=== PATIENT | female | born 1940 | race Caucasian/White ===

== ENCOUNTER → 2016-11-15 | Outpatient (CLI) | payer MEDICARE ==
--- NOTE | 2016-11-15 23:46 | MR ---
MRI of the brain with and without contrast HISTORY: Headaches. Technique: T1-weighted sagittal, T2, FLAIR, and diffusion axial, postcontrast T1 axial and coronal vi ews of the brain are submitted. CONTRAST: 15 mL of MultiHance COMPARISON: 04/10/2016 CT brain FINDINGS: There is no evidence of acute ischemia. The ventricles, basal cisterns, and sulci overlying the co nvexities are consistent with the patient's age. There is no mass effect or enhancing mass. Craniocervical junction maintained. Sella turcica has a normal appearance. No evidence of cerebellopo ntine angle mass. Mild changes of chronic sinusitis noted. Following contrast administration no enhancing mass. There is a 2 mm nodular prominence of the anteri or communicating artery. White matter: There is extensive focal and confluent areas of periventricular and deep white matter a bnormal signal the largest within the left parietal lobe measuring 8 mm. No enhancing lesions. No les ions perpendicular to the ventricular system. No callosal lesions. IMPRESSION: 1. No acute intracranial process. 2. Extensive white matter changes which are nonspecific but most typical remote microvascular ischemi a. 3. 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 Findings: The cranial cervical junction is preserved. There is no abnormal signal seen within the sp inal cord or paraspinal soft tissues. 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 Stable from previous CT scan. There is loss of disc signal at all levels with moderate degenerative disc disease C4-C5 and C5-C6 with anterior hypertrophic spur formation. Mild degenerative disc disea se C6-C7. At C2-3 there is mild facet arthropathy. No canal stenosis or foraminal encroachment. No disc herniat ion. At C3-4 there is mild degenerative disc disease with very mild bilateral uncovertebral joint hypertro phy. No canal stenosis or focal herniation. Neural foramina patent. At C4-5 there is facet arthropathy with bilateral uncovertebral joint hypertrophy with mild to modera te right-sided foraminal encroachment. There is posterior central disc bulging capped by spur with ce rvical spondylosis but no canal stenosis. At C5-6 there is moderate degenerative disc disease. There is facet arthropathy and uncovertebral cheryl nt hypertrophy with moderate bilateral foraminal encroachment. Posterior cervical spondylosis results in mild effacement of the thecal sac and borderline canal stenosis. At C6-7 there is mild facet arthropathy but no foraminal encroachment or canal stenosis. No neural fo raminal encroachment. Mild facet arthropathy. At C7-T1 there is no disc herniation or canal stenosis. No neural foraminal encroachment. Mild facet arthropathy. IMPRESSION: 1. Multilevel degenerative disc disease with the most marked changes at C4-C5 and C5-C6 with posteri or spondylosis, uncovertebral joint hypertrophy, facet arthropathy and disc bulging capped by spur. B orderline canal stenosis C5-C6 with moderate bilateral foraminal encroachment slightly greater on the right. 2. Stable ectasia of the brachiocephalic artery.
== END | disposition home or self-care (01) ==
LOC: RADMRIMAIN 19:19
PROVIDERS: ATTEND Psychiatry & Neurology Neurology
DX: R90.82 White matter disease, unspecified (principal); M48.02 Spinal stenosis, cervical region; M50.121 Cervical disc disorder at C4-C5 level with radiculopathy; M47.22 Other spondylosis with radiculopathy, cervical region; M46.82 Other specified inflammatory spondylopathies, cervical region
CPT/HCPCS: 70553; 72156; A9577

== ENCOUNTER → 2017-07-13 | Outpatient (CLI) | payer MEDICARE ==
--- NOTE | 2017-07-14 08:33 | MM ---
Reason for exam: screening (asymptomatic). Last mammogram was performed 1 year ago. History: Patient is postmenopausal. Physical Findings: A clinical breast exam by your physician is recommended on an annual basis and results should be correlated with mammographic findings. MG 3D Screening Mammo W/Cad Bilateral CC and MLO view(s) were taken. Prior study comparison: July 01, 2016, bilateral MG 3d screening mammo w/cad. June 19, 2015, bilateral MG screening mammo w CAD. There are scattered fibroglandular densities. There is no discrete abnormality. No significant changes when compared with prior studies. ASSESSMENT: Negative, BI-RAD 1 RECOMMENDATION: Routine screening mammogram of both breasts in 1 year.
== END | disposition home or self-care (01) ==
LOC: RADMAMWWP 09:46
PROVIDERS: ATTEND Internal Medicine
DX: Z12.31 Encounter for screening mammogram for malignant neoplasm of breast (principal)
CPT/HCPCS: 77063; G0202

== ENCOUNTER → 2017-12-16 | Outpatient (CLI) | payer MEDICARE ==
[2017-12-16 11:17] LABS: Basophils % (A) 1 %; Eosinophils # (A) 0.2 k/uL (0-0.7); Eosinophils % (A) 3 %; HCT 47.9 % (34.0-46.0); HGB 15.9 gm/dL (11.4-16.0); Lymphocytes # (A) 1.6 k/uL (1.0-4.8); Lymphocytes % (A) 25 %; MCH 30.1 pg (25.0-35.0); MCHC 33.2 g/dL (31.0-37.0); MCV 90.7 fL (80.0-100.0); Mean Platelet Volume 7.5; Monocytes # (A) 0.3 k/uL (0-1.0); Monocytes % (A) 5 %; Neutrophils % (A) 65 %; Platelet Count 198 k/uL (150-450); RBC 5.28 m/uL (3.80-5.40); RDW 12.6 % (11.5-15.5); WBC 6.2 k/uL (3.8-10.6)
[2017-12-16 11:36] LABS: ALT 39 U/L (9-52); AST 34 U/L (14-36); Albumin 4.3 g/dL (3.5-5.0); Alkaline Phosphatase 67 U/L (38-126); Anion Gap 12 mmol/L; Blood Urea Nitrogen 14 mg/dL (7-17); Calcium 9.9 mg/dL (8.4-10.2); Carbon Dioxide 29 mmol/L (22-30); Chloride 105 mmol/L (98-107); Cholesterol 151 mg/dL (<200); Glucose 94 mg/dL (74-99); HDL Cholesterol 47 mg/dL (40-60); LDL Cholesterol,Calculated 55 mg/dL (0-99); Potassium 4.6 mmol/L (3.5-5.1); Sodium 146 mmol/L (137-145); Total Bilirubin 0.5 mg/dL (0.2-1.3); Total Protein 7.2 g/dL (6.3-8.2); Triglycerides 244 mg/dL (<150)
== END | disposition home or self-care (01) ==
LOC: LABWHC1 10:27
PROVIDERS: ATTEND Internal Medicine
DX: I10 Essential (primary) hypertension (principal); E55.9 Vitamin D deficiency, unspecified
CPT/HCPCS: 36415; 80053; 80061; 82306; 85025

== ENCOUNTER → 2018-01-30 | Outpatient (CLI) | payer MEDICARE ==
--- NOTE | 2018-01-30 22:24 | MR ---
EXAMINATION TYPE: MR cervical spine wo con DATE OF EXAM: 01/30/2018 COMPARISON: NONE HISTORY: Cervicalgia TECHNIQUE: Multiplanar, multisequence images of the cervical spine were acquired. C2-C3: No evidence for degenerative disc disease. No disc bulge/herniation or protrusion. No Canal stenosis. Foramina are patent bilaterally. C3-C4: Mild disc bulge is present. No cord contact is evident. No spinal canal stenosis or neural for aminal stenosis is present. C4-C5: Broad-based disc bulge has mild to moderate anterior thecal sac compression. No cord contact i s evident. No AP spinal canal stenosis present. Moderate right foraminal narrowing is present. Left f oramen appears patent. C5-C6: No evidence for degenerative disc disease. No disc bulge/herniation or protrusion. No Canal stenosis. Neural foramen appear moderately narrowed bilaterally. C6-C7: No evidence for degenerative disc disease. No disc bulge/herniation or protrusion. No Canal stenosis. Foramina are patent bilaterally. C7-T1: No evidence for degenerative disc disease. No disc bulge/herniation or protrusion. No Canal stenosis. Foramina are patent bilaterally. Cervical segments are intact. There is exaggeration of cervical lordosis within the lower cervical s pine. Cervical spinal cord is of normal signal. Craniovertebral junction relationships are within no rmal limits. IMPRESSION: 1. Disc bulging C3-4 C4-5 with mild to moderate anterior thecal sac compression. No stenosis is prese nt. 2. Foraminal narrowing present C5-6 due to uncovertebral joint hypertrophy and on the right at C4-5 d ue to uncovertebral joint hypertrophy.
== END | disposition home or self-care (01) ==
LOC: RADMRIMAIN 08:21
PROVIDERS: ATTEND Internal Medicine
DX: M99.71 Connective tissue and disc stenosis of intervertebral foramina of cervical region (principal); M50.11 Cervical disc disorder with radiculopathy, high cervical region; G95.29 Other cord compression
CPT/HCPCS: 72141

== ENCOUNTER 2018-03-31 12:05 | Emergency (ER) | payer MEDICARE ==
[2018-03-31 12:16] VITALS: BP 140/79; PULSE 88; RESP 16; TEMP 967.8
--- NOTE | 2018-03-31 12:42 | ED ---
General Adult HPI - General Chief complaint: Fall Stated complaint: Fall/pain behind ear Time Seen by Provider: 03/31/18 12:18 Source: family, RN notes reviewed Mode of arrival: ambulatory Limitations: physical limitation - History of Present Illness Initial comments: 78-year-old female presenting for evaluation of head trauma which occurred yesterday evening. Patient was getting out of the bathtub, slipped and fell striking the right mastoid process. There was no loss of consciousness. Patient is currently unsure if she takes blood thinners but believes she does not. She denies any neck pain. She has pain only at the site of injury. No complaints of numbness or extremity weakness. No chest pain or abdominal pain. No other injuries noted. - Related Data Home Medications Medication Instructions Recorded Confirmed Albuterol Sulfate [Proair Hfa] 1 - 2 puff INHALATION RT-Q6H PRN 03/31/18 Atenolol [Tenormin] 25 mg PO DAILY 03/31/18 03/31/18 Atorvastatin [Lipitor] 20 mg PO HS 03/31/18 03/31/18 Gabapentin [Neurontin] 300 mg PO TID 03/31/18 03/31/18 Multivitamins, Thera [Multivitamin 1 tab PO DAILY 03/31/18 03/31/18 (formulary)] Allergies Allergy/AdvReac Type Severity Reaction Status Date / Time codeine Allergy Confusion Verified 03/31/18 12:16 Review of Systems ROS Statement: Those systems with pertinent positive or pertinent negative responses have been documented in the HPI. ROS Other: All systems not noted in ROS Statement are negative. Past Medical History Past Medical History: Chest Pain / Angina, Hyperlipidemia History of Any Multi-Drug Resistant Organisms: None Reported Past Surgical History: Hysterectomy, Orthopedic Surgery, Tubal Ligation Additional Past Surgical History / Comment(s): right hand Past Psychological History: No Psychological Hx Reported Smoking Status: Never smoker Past Alcohol Use History: None Reported Past Drug Use History: None Reported General Exam Limitations: physical limitation General appearance: alert, in no apparent distress Head exam: Present: normocephalic. Absent: atraumatic (Patient has ecchymosis over the right mastoid with some point tenderness. No appreciable bony deformity. No hemotympanum) Eye exam: Present: normal appearance, PERRL, EOMI ENT exam: Present: normal exam Neck exam: Present: normal inspection, tenderness. Absent: meningismus Respiratory exam: Present: normal lung sounds bilaterally. Absent: respiratory distress, wheezes Cardiovascular Exam: Present: regular rate, normal rhythm GI/Abdominal exam: Present: soft. Absent: distended, tenderness Extremities exam: Present: normal inspection, normal capillary refill. Absent: pedal edema Back exam: Present: normal inspection, full ROM. Absent: tenderness Neurological exam: Present: alert, oriented X3, CN II-XII intact. Absent: motor sensory deficit Psychiatric exam: Present: normal affect, normal mood Skin exam: Present: warm, dry, intact Course Vital Signs 03/31/18 12:11 Temperature 967.8 F H Pulse Rate 88 Respiratory 16 Rate Blood Pressure 140/79 O2 Sat by Pulse 97 Oximetry Medical Decision Making - Medical Decision Making 78-year-old female presents status post fall with pain over her right mastoid and some ecchymosis. Patient was sent from primary care physician for evaluation. Head CT is obtained is negative for intracranial hemorrhage or mass effect. There is no bony abnormality at the right mastoid. CT cervical spine shows an old C1 fracture which is healed and unchanged from 2016. Patient has no neck pain. Patient will be discharged with outpatient follow-up. She can use Tylenol for pain. Disposition Clinical Impression: Fall, Contusion Disposition: HOME SELF-CARE Condition: Good Instructions: Fall Prevention for Older Adults (ED), Contusion in Adults (ED) Is patient prescribed a controlled substance at d/c from ED?: No Referrals: Salvador Amador MD [Primary Care Provider] - 1-2 days Time of Disposition: 14:15
--- NOTE | 2018-03-31 14:06 | CT ---
EXAMINATION TYPE: CT brain cspine wo con DATE OF EXAM: 03/31/2018 COMPARISON: 04/10/2016 HISTORY: Fell and hit Rt mastoid region in bathtub. Head and neck pain. CT DLP: 1499.6 mGycm. Automated Exposure Control for Dose Reduction was Utilized. TECHNIQUE: CT scan of the head and cervical spine are performed without contrast. FINDINGS: There is no acute intracranial hemorrhage, mass effect, or midline shift identified. The ventricles and sulci are mildly but symmetrically prominent compatible with age-related volume loss. There are scattered foci of hypoattenuation within the subcortical and periventricular white matter including the external capsules bilaterally. This most commonly relates to sequela microangiopathy. No suspicious extra axial fluid collection is seen. The globes are intact and the visualized sinuses are clear. Cerumen is noted within the external auditory canals. No middle ear cavity fluid. Cervical spine is visualized in its entirety from C1 through upper thoracic levels and demonstrates s atisfactory alignment without evidence of acute fracture or dislocation. Cortical step-off and prior fracture of the right lateral mass of C1 without extent into the transverse foramen as unchanged fro m the prior 04/10/2016 and chronic, incompletely united. Prevertebral soft tissue appears within johanna l limits. The C1-C2 articulation is unremarkable. Mild multilevel degenerative changes of the cervic al spine are seen without evidence spinal canal stenosis on CT. On MR there is note of mild narrowing of the ventral subarachnoid space at C3-C4 and C4-C5 (MRI dated 01/30/2018). IMPRESSION: 1. No acute intracranial process. No acute intracranial hemorrhage, mass effect, or midline shift is seen. 2. No acute cervical spine fracture. Subtle incompletely united old fracture of the lateral mass of C 1, unchanged from 2016. No new malalignment. 3. Mild multilevel degenerative changes of the cervical spine.
== END 2018-03-31 14:00 | disposition home or self-care (01) ==
LOC: EC 12:05
DX: S00.83XA Contusion of other part of head, initial encounter (principal); E78.5 Hyperlipidemia, unspecified; Z79.899 Other long term (current) drug therapy; Z88.5 Allergy status to narcotic agent; Z86.79 Personal history of other diseases of the circulatory system; W18.2XXA Fall in (into) shower or empty bathtub, initial encounter; Y93.89 Activity, other specified; Y92.009 Unspecified place in unspecified non-institutional (private) residence as the place of occurrence of the external cause
CPT/HCPCS: 70450; 72125; 99283

== ENCOUNTER → 2018-04-05 | Outpatient (CLI) | payer MEDICARE ==
[2018-04-05 19:52] LABS: Blood Urea Nitrogen 13 mg/dL (7-17)
--- NOTE | 2018-04-06 01:25 | MR ---
EXAMINATION TYPE: MR brachial plexus RT wo/w con DATE OF EXAM: 04/05/2018 COMPARISON: NONE HISTORY: Rt brachial plexus disorder CONTRAST: Standard multiplanar, multisequence MRI departmental protocol utilizing 7.5 mL intravenous Gadavist g adolinium contrast. FINDINGS: The cervical vertebra appear to have fairly normal alignment. There is narrowing of disc sp aces. Right side cervical nerve roots have normal size and contour. There is no evidence of brachial plexus mass. Cervical spinal cord has normal signal pattern. There is no evidence of edema. There are few small axillary lymph nodes that measure up to 8 mm. There is moderately severe osteoarthritis in the right shoulder joint. There is subacromial impingement and probably rotator cuff tear. There is moderate hypertrophic osteoarthritis at the AC joint. I see no pathologic enhancement. IMPRESSION: Multilevel cervical mild spondylotic changes. No evidence of brachial plexus mass. Nonspecific small axillary lymph nodes. 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
== END | disposition home or self-care (01) ==
LOC: RADMRIMAIN 19:21
PROVIDERS: ATTEND Neurological Surgery
DX: M47.812 Spondylosis without myelopathy or radiculopathy, cervical region (principal); G54.0 Brachial plexus disorders
CPT/HCPCS: 82565; 84520; 71552; A9581

== ENCOUNTER 2018-05-09 12:32 | Emergency (ER) | payer MEDICARE ==
[2018-05-09] MEDS ORDERED: SODIUM CHLORIDE 0.9% 1,000 ML IV STA (13:11)
[2018-05-09] MEDS ORDERED: ALBUTEROL NEBULIZED 2.5 MG/3 ML INHALATION STA (13:11)
[2018-05-09] MEDS ORDERED: RX INFO: IV CONTRAST WAS GIVEN 1 EACH MISC MISCELLANE PRN (13:13)
--- NOTE | 2018-05-09 13:14 | ED ---
SOB HPI - General Chief Complaint: Shortness of Breath Stated Complaint: SOB Time Seen by Provider: 05/09/18 12:48 Source: patient Mode of arrival: wheelchair Limitations: no limitations - History of Present Illness Initial Comments: 78 years old female sent in by Dr. Odell's office she has shortness of breath she thinks that she she choked on a CVL about a week ago she denies any chest pain she said she does get a twinge of chest pain off-and-on no chest pain right now, she does feel a bit of a discomfort in the chest off-and-on. No abdominal pain no frequency urgency dysuria no symptoms of TIA or CVA - Related Data Home Medications Medication Instructions Recorded Confirmed Atenolol [Tenormin] 25 mg PO DIRECTED 03/31/18 05/09/18 Atorvastatin [Lipitor] 20 mg PO DIRECTED 03/31/18 05/09/18 Cholecalciferol [Vitamin D3] 1,000 unit PO DAILY 05/09/18 05/09/18 Glucosam/Chond/Hyalu/Cf Borate 1 tab PO DAILY 05/09/18 05/09/18 [Move Free Joint Health Tablet] Allergies Allergy/AdvReac Type Severity Reaction Status Date / Time codeine AdvReac MIGRAINE Verified 05/09/18 13:19 Review of Systems ROS Statement: Those systems with pertinent positive or pertinent negative responses have been documented in the HPI. ROS Other: All systems not noted in ROS Statement are negative. Past Medical History Past Medical History: Chest Pain / Angina, Hyperlipidemia History of Any Multi-Drug Resistant Organisms: None Reported Past Surgical History: Hysterectomy, Orthopedic Surgery, Tubal Ligation Additional Past Surgical History / Comment(s): right hand Past Psychological History: No Psychological Hx Reported Smoking Status: Never smoker Past Alcohol Use History: None Reported Past Drug Use History: None Reported General Exam - General Exam Comments Initial Comments: General: The patient is awake and alert, in no distress, and does not appear acutely ill. Skin: Skin is warm and dry and no rashes or lesions are noted. Eye: Pupils are equal, round and reactive to light, extra-ocular movements are intact; there is normal conjunctiva bilaterally. Ears, nose, mouth and throat: There are moist mucous membranes and no oral lesions. Neck: The neck is supple, there is no tenderness or JVD. Cardiovascular: There is a regular rate and rhythm. No murmur, rub or gallop is appreciated. Respiratory: To auscultation bilateral, it is consistent with a COPD Gastrointestinal: Soft, non-distended, non-tender abdomen without masses or organomegaly noted. There is no rebound or guarding present. Bowel sounds are unremarkable. Back: There is no tenderness to palpation in the midline. There is no obvious deformity. Musculoskeletal: Normal ROM, no tenderness, There is no pedal edema. There is no calf tenderness or swelling. No cords were appreciated. Neurological: CN II-XII intact, Cranial nerves III through XII are intact. There are no obvious motor or sensory deficits. Coordination appears grossly intact. Speech is normal. Psychiatric: Cooperative, appropriate mood & affect, normal judgment. Limitations: no limitations Course Vital Signs 05/09/18 05/09/18 05/09/18 12:43 13:29 13:43 Temperature 98.4 F Pulse Rate 101 H 95 96 Respiratory 20 Rate Blood Pressure 114/79 O2 Sat by Pulse 98 Oximetry 05/09/18 05/09/18 13:57 16:34 Temperature 99.1 F 97.1 F L Pulse Rate 100 90 Respiratory 18 18 Rate Blood Pressure 127/78 133/80 O2 Sat by Pulse 97 98 Oximetry EKG is normal sinus ventricular rate is 98 OH interval is 184 QRS duration is 72 QT/QTc is 342/436 review of this EKG does not reveal any ST elevation or ST depression CBC is unremarkable, EKG, troponin, chest x-ray are fine d-dimer is elevated we did the CAT scan of the chest to rule out PE or foreign body that study was negative as well now plan is to do for her to ENT Dr. Liu for scope as well as to Dr. Solis for scope see if there is any growth or any tumor in the oropharynx or upper airways or esophagitis she agreed with the plan and she be discharged Medical Decision Making - Lab Data Result diagrams: 05/09/18 13:16 05/09/18 13:16 Lab Results 05/09/18 05/09/18 05/09/18 Range/Units 13:16 13:16 13:16 WBC 7.1 (3.8-10.6) k/uL RBC 5.68 H (3.80-5.40) m/uL Hgb 16.8 H (11.4-16.0) gm/dL Hct 50.5 H (34.0-46.0) % MCV 88.9 (80.0-100.0) fL MCH 29.6 (25.0-35.0) pg MCHC 33.3 (31.0-37.0) g/dL RDW 13.0 (11.5-15.5) % Plt Count 221 (150-450) k/uL Neutrophils % 70 % Lymphocytes % 23 % Monocytes % 4 % Eosinophils % 1 % Basophils % 1 % Neutrophils # 5.0 (1.3-7.7) k/uL Lymphocytes # 1.6 (1.0-4.8) k/uL Monocytes # 0.3 (0-1.0) k/uL Eosinophils # 0.1 (0-0.7) k/uL Basophils # 0.0 (0-0.2) k/uL PT (9.0-12.0) sec INR (<1.2) APTT (22.0-30.0) sec D-Dimer (<0.60) mg/L FEU Sodium 141 (137-145) mmol/L Potassium 4.3 (3.5-5.1) mmol/L Chloride 105 (98-107) mmol/L Carbon Dioxide 22 (22-30) mmol/L Anion Gap 14 mmol/L BUN 10 (7-17) mg/dL Creatinine 0.57 (0.52-1.04) mg/dL Est GFR (CKD-EPI)AfAm >90 (>60 ml/min/1.73 sqM) Est GFR (CKD-EPI)NonAf 90 (>60 ml/min/1.73 sqM) Glucose 91 (74-99) mg/dL Calcium 9.8 (8.4-10.2) mg/dL Total Bilirubin 0.5 (0.2-1.3) mg/dL AST 30 (14-36) U/L ALT 27 (9-52) U/L Alkaline Phosphatase 55 (38-126) U/L Total Creatine Kinase 179 H (30-135) U/L CK-MB (CK-2) 3.3 H* (0.0-2.4) ng/mL CK-MB (CK-2) Rel Index 1.8 Troponin I <0.012 (0.000-0.034) ng/mL Total Protein 7.2 (6.3-8.2) g/dL Albumin 4.4 (3.5-5.0) g/dL 05/09/18 Range/Units 13:16 WBC (3.8-10.6) k/uL RBC (3.80-5.40) m/uL Hgb (11.4-16.0) gm/dL Hct (34.0-46.0) % MCV (80.0-100.0) fL MCH (25.0-35.0) pg MCHC (31.0-37.0) g/dL RDW (11.5-15.5) % Plt Count (150-450) k/uL Neutrophils % % Lymphocytes % % Monocytes % % Eosinophils % % Basophils % % Neutrophils # (1.3-7.7) k/uL Lymphocytes # (1.0-4.8) k/uL Monocytes # (0-1.0) k/uL Eosinophils # (0-0.7) k/uL Basophils # (0-0.2) k/uL PT 10.8 (9.0-12.0) sec INR 1.1 (<1.2) APTT 24.0 (22.0-30.0) sec D-Dimer 0.80 H (<0.60) mg/L FEU Sodium (137-145) mmol/L Potassium (3.5-5.1) mmol/L Chloride (98-107) mmol/L Carbon Dioxide (22-30) mmol/L Anion Gap mmol/L BUN (7-17) mg/dL Creatinine (0.52-1.04) mg/dL Est GFR (CKD-EPI)AfAm (>60 ml/min/1.73 sqM) Est GFR (CKD-EPI)NonAf (>60 ml/min/1.73 sqM) Glucose (74-99) mg/dL Calcium (8.4-10.2) mg/dL Total Bilirubin (0.2-1.3) mg/dL AST (14-36) U/L ALT (9-52) U/L Alkaline Phosphatase (38-126) U/L Total Creatine Kinase (30-135) U/L CK-MB (CK-2) (0.0-2.4) ng/mL CK-MB (CK-2) Rel Index Troponin I (0.000-0.034) ng/mL Total Protein (6.3-8.2) g/dL Albumin (3.5-5.0) g/dL Disposition Clinical Impression: Foreign body in airway, Foreign body in esophagus Disposition: HOME SELF-CARE Condition: Good Instructions: Bronchospasm (ED) Is patient prescribed a controlled substance at d/c from ED?: No Referrals: Salvador Amador MD [Primary Care Provider] - 1-2 days Simeon Kumar MD [STAFF PHYSICIAN] - 1-2 days Asher Liu MD [STAFF PHYSICIAN] - 1-2 days
[2018-05-09 13:29] LABS: Basophils % (A) 1 %; Eosinophils # (A) 0.1 k/uL (0-0.7); Eosinophils % (A) 1 %; HCT 50.5 % (34.0-46.0); HGB 16.8 gm/dL (11.4-16.0); Lymphocytes # (A) 1.6 k/uL (1.0-4.8); Lymphocytes % (A) 23 %; MCH 29.6 pg (25.0-35.0); MCHC 33.3 g/dL (31.0-37.0); MCV 88.9 fL (80.0-100.0); Monocytes # (A) 0.3 k/uL (0-1.0); Monocytes % (A) 4 %; Neutrophils % (A) 70 %; Platelet Count 221 k/uL (150-450); RBC 5.68 m/uL (3.80-5.40); WBC 7.1 k/uL (3.8-10.6)
[2018-05-09 13:41] LABS: ALT 27 U/L (9-52); AST 30 U/L (14-36); Albumin 4.4 g/dL (3.5-5.0); Alkaline Phosphatase 55 U/L (38-126); Anion Gap 14 mmol/L; Blood Urea Nitrogen 10 mg/dL (7-17); Calcium 9.8 mg/dL (8.4-10.2); Carbon Dioxide 22 mmol/L (22-30); Chloride 105 mmol/L (98-107); Glucose 91 mg/dL (74-99); Potassium 4.3 mmol/L (3.5-5.1); Sodium 141 mmol/L (137-145); Total Bilirubin 0.5 mg/dL (0.2-1.3); Total Protein 7.2 g/dL (6.3-8.2)
[2018-05-09 13:46] LABS: INR 1.1 (<1.2); Prothrombin Time 10.8 sec (9.0-12.0)
[2018-05-09 13:48] LABS: D-Dimer 0.8 mg/L FEU (<0.60)
--- NOTE | 2018-05-09 13:52 | XR ---
EXAMINATION TYPE: XR chest 2V DATE OF EXAM: 05/09/2018 COMPARISON: Chest x-ray May 27, 2013 HISTORY: Shortness of breath and choking. TECHNIQUE: Frontal and lateral views of the chest are obtained. FINDINGS: There is no focal air space opacity, pleural effusion, or pneumothorax seen. The cardiac silhouette size is within normal limits with slightly ectatic thoracic aorta redemonstrated. Prominen t multilevel spurring in the mid to lower thoracic spine is again seen. IMPRESSION: No acute cardiopulmonary process. No significant change from prior.
[2018-05-09 13:59] VITALS: RESP 18
[2018-05-09 13:59] LABS: Creatine Kinase 179 U/L (30-135)
[2018-05-09 14:12] LABS: Troponin I <0.012 ng/mL (0.000-0.034)
[2018-05-09 14:15] LABS: Creatine Kinase MB 3.3 ng/mL (0.0-2.4)
--- NOTE | 2018-05-09 15:34 | CT ---
EXAMINATION TYPE: CT chest angio for PE DATE OF EXAM: 05/09/2018 COMPARISON: None HISTORY: SOB CT DLP: 243.40 mGycm CONTRAST: CT chest with contrast and 3D reconstruction with MIP imaging is performed with IV Contrast, patient injected with 100 ml mL of Isovue 370. Contrast-enhanced CT of the chest was performed through the course of the pulmonary arteries with piyush g and mediastinal window settings submitted. 3D reconstruction with MIP imaging was also performed. PULMONARY ARTERIES: The pulmonary arteries and their major tributaries are patent. I do not see marisol dence for sizable filling defect to suggest pulmonary embolic process. LUNGS: The lungs are clear and free of infiltrate. No evidence for atelectasis. No pulmonary nodule or mass is detected. No pleural effusion. MEDIASTINUM: No foreign body identified within the visualized tracheobronchial tree. Thoracic aorta is of normal caliber,however, evaluation is limited given timing of the contrast bolus. If there is concern for thoracic aortic pathology consider TONG. Correlate clinically . The heart is not enlarged . No evidence for mediastinal mass. No mediastinal lymph nodes greater than 1cm. HILAR STRUCTURES: No evidence for mass. No hilar lymph nodes greater than 1 cm. UPPER ABDOMEN: No significant abnormality is seen. IMPRESSION: 1. No evidence for Pulmonary embolism at this time.
[2018-05-09 16:36] VITALS: PULSE 90
[2018-05-09 17:57] VITALS: BP 121/72; TEMP 98
== END 2018-05-09 18:09 | disposition home or self-care (01) ==
LOC: EC 12:32
DX: T18.108A Unspecified foreign body in esophagus causing other injury, initial encounter (principal); T17.808A Unspecified foreign body in other parts of respiratory tract causing other injury, initial encounter; R74.0 Nonspecific elevation of levels of transaminase and lactic acid dehydrogenase [LDH]; E78.5 Hyperlipidemia, unspecified; Z79.899 Other long term (current) drug therapy; Z88.5 Allergy status to narcotic agent
CPT/HCPCS: 36415; 94640; 93005; 85379; 80053; 82550; 82553; 84484; 85025; 85610; 85730; 71046; 71275; 99285; 96360; 96361 ×3; Q9967

== ENCOUNTER → 2018-06-29 | Outpatient (CLI) | payer MEDICARE ==
--- NOTE | 2018-06-29 10:00 | FL ---
EXAMINATION TYPE: FL sniff test without CXR DATE OF EXAM: 06/29/2018 COMPARISON: Correlation radiograph and CT 05/09/2018 HISTORY: 78-year-old female intermittent shortness of breath with exertion, right-sided generalized w eakness, assess for diaphragmatic paralysis. TECHNIQUE: Real-time fluoroscopy. Total fluoroscopy time: 59 seconds. Total images: 7. FINDINGS: The left hemidiaphragm is only minimally elevated compared to the right. During normal breathing, we note quick and shallow respirations. During deep inspiration/expiration, there is very minimal diaphragmatic excursion with breathing susp ected to be performed via chest wall expansion. However, with sniffing maneuver, there is appropriate movement and excursion of both hemidiaphragms. IMPRESSION: 1. No evidence for diaphragmatic paralysis. 2. The patient has shallow quick respirations at baseline. 3. In addition, deep inspiration/expiration results in very minimal diaphragmatic excursion with deep breathing suspected to be performed primarily via chest wall expansion.
== END | disposition home or self-care (01) ==
LOC: RADFLMAIN 09:03
PROVIDERS: ATTEND Internal Medicine
DX: J98.9 Respiratory disorder, unspecified (principal); Z88.5 Allergy status to narcotic agent; Z88.6 Allergy status to analgesic agent
CPT/HCPCS: 76000

== ENCOUNTER → 2018-10-26 | Outpatient (CLI) | payer MEDICARE ==
--- NOTE | 2018-10-26 12:01 | FL ---
MODIFIED SWALLOW / DEGLUTITION STUDY DATE OF EXAM: 10/26/2018 CLINICAL HISTORY: 78-year-old female with Dysphagia. Patient reports trouble swallowing and sensation of residuals in the throat. TECHNIQUE: Deglutition study is performed utilizing thin liquid barium, honey and nectar thick liqui d barium, barium thick applesauce, and barium coated cracker. Total fluoroscopy time: 2 minutes 23 seconds. Total images: None. Real-time fluoroscopy support was provided to speech pathology. COMPARISON: None. FINDINGS: The oral and pharyngeal phases show satisfactory initiation and propagation with all modalities teste d. Normal mastication is seen with solid modalities tested. There is superficial penetration with t hin and nectar liquid consistency that resolves with chin tuck maneuver. There is mild to moderate an terior endplate spondylosis in the lower cervical spine impressing on the posterior wall of the hypop harynx without obstruction. No significant pharyngeal residue was appreciated. IMPRESSION: Superficial penetration with thin liquids and nectar thickened liquids. Resolves with chin tuck. Please refer to speech therapist notes for further details if necessary.
== END ==
LOC: RADFLMAIN 11:18
PROVIDERS: ATTEND Otolaryngology
DX: R13.10 Dysphagia, unspecified (principal)
CPT/HCPCS: 74230

== ENCOUNTER 2018-11-11 19:10 | Observation (INO) | payer MEDICARE ==
[2018-11-11 19:44] LABS: Basophils % (A) 0 %; Eosinophils # (A) 0.1 k/uL (0-0.7); Eosinophils % (A) 1 %; HCT 46.8 % (34.0-46.0); HGB 15.4 gm/dL (11.4-16.0); Lymphocytes # (A) 1.5 k/uL (1.0-4.8); Lymphocytes % (A) 19 %; MCH 30.5 pg (25.0-35.0); MCV 92.3 fL (80.0-100.0); Mean Platelet Volume 7.5; Monocytes # (A) 0.4 k/uL (0-1.0); Monocytes % (A) 5 %; Neutrophils % (A) 75 %; Platelet Count 245 k/uL (150-450); RBC 5.07 m/uL (3.80-5.40); RDW 13.5 % (11.5-15.5)
[2018-11-11 19:52] LABS: INR 0.9 (<1.2); Partial Thromboplastin Time 23.2 sec (22.0-30.0)
--- NOTE | 2018-11-11 19:54 | XR ---
EXAMINATION TYPE: XR chest 2V DATE OF EXAM: 11/11/2018 COMPARISON: Prior chest x-ray 05/09/2018 HISTORY: Chest pain TECHNIQUE: Frontal and lateral views of the chest are obtained. FINDINGS: Patient is rotated. There are overlying cardiac leads. There is no focal air space opacity, pleural effusion, or pneumothorax seen. The cardiac silhouette size is stable. The osseous struct ures are intact. IMPRESSION: No acute cardiopulmonary process.
[2018-11-11 19:58] LABS: ALT 26 U/L (9-52); AST 26 U/L (14-36); Albumin 3.7 g/dL (3.5-5.0); Alkaline Phosphatase 41 U/L (38-126); Anion Gap 7 mmol/L; Blood Urea Nitrogen 12 mg/dL (7-17); Calcium 9.4 mg/dL (8.4-10.2); Carbon Dioxide 33 mmol/L (22-30); Chloride 101 mmol/L (98-107); Glucose 128 mg/dL (74-99); Magnesium 2.1 mg/dL (1.6-2.3); Potassium 3.9 mmol/L (3.5-5.1); Sodium 141 mmol/L (137-145); Total Bilirubin 0.4 mg/dL (0.2-1.3); Total Protein 6.3 g/dL (6.3-8.2)
[2018-11-11 20:07] LABS: Creatine Kinase 43 U/L (30-135)
--- NOTE | 2018-11-11 20:19 | ED ---
Chest Pain HPI - General Chief Complaint: Chest Pain Stated Complaint: Chest Pain Time Seen by Provider: 11/11/18 19:10 Source: patient, EMS, RN notes reviewed Mode of arrival: EMS Limitations: no limitations - History of Present Illness Initial Comments: This is a 78-year-old female history of a recent workup which apparently showed some partial obstructions of the coronary arteries also a history of A. fib who presents with complaints of sudden onset of 06/09 midsternal chest pain with dyspnea just prior to arrival. She was brought in by EMS she was given 324 mg aspirin one nitroglycerin did regarding her pain level down from 06/09-11/09. She also did have some decline of her blood pressure. She also has some shortness of breath she does feel much improved at this time. No recent fevers chills cough or phlegm production. MD Complaint: chest pain - Related Data Home Medications Medication Instructions Recorded Confirmed Cholecalciferol [Vitamin D3] 2,000 unit PO DAILY 05/09/18 11/11/18 Atenolol 25 mg PO DAILY 11/11/18 11/11/18 Gabapentin [Neurontin] 300 mg PO TID 11/11/18 11/11/18 Allergies Allergy/AdvReac Type Severity Reaction Status Date / Time codeine AdvReac MIGRAINE Verified 11/11/18 19:33 Review of Systems ROS Statement: Those systems with pertinent positive or pertinent negative responses have been documented in the HPI. ROS Other: All systems not noted in ROS Statement are negative. EKG Findings - EKG Results: EKG: interpreted by ERMD, sinus rhythm (Sinus rhythm rate of 114 SD interval 180 QRS 70 QT since QTC 314/432 low-voltage QRS no acute ST-T wave abnormalities noted.) Past Medical History Past Medical History: Chest Pain / Angina, Hyperlipidemia History of Any Multi-Drug Resistant Organisms: None Reported Past Surgical History: Hysterectomy, Orthopedic Surgery, Tubal Ligation Additional Past Surgical History / Comment(s): right hand Past Psychological History: No Psychological Hx Reported Smoking Status: Never smoker Past Alcohol Use History: None Reported Past Drug Use History: None Reported General Exam - General Exam Comments Initial Comments: This is a well-developed well-nourished awake alert oriented 3 female Limitations: no limitations General appearance: alert, anxious Head exam: Present: atraumatic, normocephalic, normal inspection Eye exam: Present: normal appearance, PERRL, EOMI. Absent: scleral icterus, conjunctival injection, periorbital swelling ENT exam: Present: normal exam, mucous membranes moist Neck exam: Present: normal inspection. Absent: tenderness, meningismus, lymphadenopathy Respiratory exam: Present: normal lung sounds bilaterally. Absent: respiratory distress, wheezes, rales, rhonchi, stridor Cardiovascular Exam: Present: regular rate, normal rhythm, normal heart sounds. Absent: systolic murmur, diastolic murmur, rubs, gallop, clicks GI/Abdominal exam: Present: soft, normal bowel sounds. Absent: distended, tenderness, guarding, rebound, rigid Extremities exam: Present: normal inspection, full ROM, normal capillary refill. Absent: tenderness, pedal edema, joint swelling, calf tenderness Back exam: Present: normal inspection Neurological exam: Present: alert, oriented X3, CN II-XII intact Psychiatric exam: Present: normal affect, normal mood Skin exam: Present: warm, dry, intact, normal color. Absent: rash Course Vital Signs 11/11/18 19:30 Temperature 98.7 F Pulse Rate 111 H Respiratory 20 Rate Blood Pressure 101/73 O2 Sat by Pulse 97 Oximetry - Reevaluation(s) Reevaluation #1: 11/11/18 21:01 Reevaluation patient reveals that she is been having intermittent episodes of chest pain during her stay here. Chest Pain MDM - MDM Did review the imaging and reports no acute findings. I did discuss findings with the patient family members or present. I also discussed case with Dr. Wilson. Patient be admitted to the hospital for inpatient evaluation of suspected unstable angina. Critical Care Time Critical Care Time: Yes Critical Care Time: 31 minutes of critical care time which includes initial presentation with history physical labs x-rays reevaluation patient several occasions discussion with patient family regarding findings discussion with the admitting physician Dr. Wilson admission orders documentation above review of old charting available. Disposition Clinical Impression: Unstable angina, Chest pain Disposition: ADMITTED IP TO THIS [facility] Condition: Serious Referrals: Salvador Amador MD [Primary Care Provider] - 1-2 days
[2018-11-11 20:20] LABS: Creatine Kinase MB 1.1 ng/mL (0.0-2.4); Troponin I <0.012 ng/mL (0.000-0.034)
[2018-11-11] MEDS ORDERED: NITROGLYCERIN SL TABS 0.4 MG TAB SUBLINGUAL PRN (21:05)
[2018-11-11] MEDS ORDERED: HEPARIN SODIUM,PORCINE 5,000 UNIT/ML 1 ML VIAL IV ONE (21:05)
[2018-11-11] MEDS ORDERED: HEPARIN SOD,PORK IN 0.45% NACL 25,000 UNIT in 0.45% NACL 1 250ML.BAG IV SCH (21:15)
[2018-11-11] MEDS ORDERED: SODIUM CHLORIDE 0.9% 1,000 ML IV SCH (21:15)
[2018-11-11 22:14] VITALS: BMI 22.6
[2018-11-11] MEDS: GABAPENTIN 300 MG CAP PO SCH (23:14)
[2018-11-11] MEDS: NITROGLYCERIN OINT 1 INCH/GM PACKET TOPICAL SCH (23:54)
[2018-11-12 01:30] LABS: Creatine Kinase 43 U/L (30-135)
[2018-11-12 01:43] LABS: Creatine Kinase MB 1.3 ng/mL (0.0-2.4); Troponin I <0.012 ng/mL (0.000-0.034)
[2018-11-12] MEDS: NITROGLYCERIN OINT 1 INCH/GM PACKET TOPICAL SCH (05:52)
[2018-11-12 07:04] LABS: Cholesterol 199 mg/dL (<200); HDL Cholesterol 50 mg/dL (40-60); LDL Cholesterol,Calculated 126 mg/dL (0-99); Triglycerides 117 mg/dL (<150)
[2018-11-12 07:14] VITALS: RESP 18
[2018-11-12 07:20] LABS: Creatine Kinase 51 U/L (30-135)
[2018-11-12 08:02] LABS: Creatine Kinase MB 1.8 ng/mL (0.0-2.4); Troponin I <0.012 ng/mL (0.000-0.034)
[2018-11-12] MEDS: GABAPENTIN 300 MG CAP PO SCH ×2 (08:34→15:45)
[2018-11-12] MEDS ORDERED: ASPIRIN 325 MG TAB PO SCH (09:00)
[2018-11-12] MEDS ORDERED: CHOLECALCIFEROL 1,000 UNIT TAB PO SCH (09:00)
[2018-11-12] MEDS ORDERED: ATENOLOL 25 MG TAB PO SCH (09:00)
[2018-11-12] MEDS ORDERED: ATENOLOL 25 MG TAB PO STA (11:48)
--- NOTE | 2018-11-12 11:51 | P.CRDCN ---
History of Present Illness History of present illness: This is a pleasant 78-year-old female past medical history significant for hypertension and dyslipidemia. She follows with Dr. Becerra in the office. We have been assisting her in consultation for symptoms of chest discomfort. Yesterday while sitting in chair watching television she started with a tight squeezing sensation in the left precordial region with shortness of breath, light headed and mildly diaphoretic. No nausea, vomiting or palpitations. No radiation to arms, back, neck or jaw. Ultimately subsided upon arrival to the hospital. No chest pain currently. She has no specific aggravating or alleviating factors. In July of this year she underwent cardiac catheterization [facility] which revealed essentially normal coronary arteries with mild plaque noted in the mid to distal LAD that was nonobstructive. EKG on arrival reveals sinus mechanism no acute ST or T wave abnormalities noted with heart rate of 114. Chest x-ray is negative for acute cardiopulmonary process. Laboratory data reviewed, WBC 8.0, hemoglobin 15.4, platelets 245, sodium 141, potassium 3.9, creatinine 0.43, magnesium 2.1, cardiac enzymes negative 3, LDL 126 and HDL 50. Current cardiac medications include atenolol 25 mg daily. Most recent echocardiogram obtained in the office December 2017 reveals preserved left ventricular systolic function with ejection fraction 55%. At the time of my exam: CONSTITUTIONAL: Denies fever. Denies chills. EYES: Denies blurred vision. Denies vision changes. Denies eye pain. EARS, NOSE, MOUTH & THROAT: Denies headache. Denies sore throat. Denies ear pain. CARDIOVASCULAR: Denies chest pain. Denies shortness of breath. Denies orthopnea. Denies PND. Denies palpitations. RESPIRATORY: Denies cough. GASTROINTESTINAL: Denies abdominal pain. Denies diarrhea. Denies constipation. Denies nausea. Denies vomiting. MUSCULOSKELETAL: Denies myalgias. INTEGUMENTARY: Denies pruitis. Denies rash. NEUROLOGIC: Denies numbness. Denies tingling. Denies weakness. PSYCHIATRIC: Denies anxiety. Denies depression. ENDOCRINE: Denies fatigue. Denies weight change. Denies polydipsia. Denies polyurina. GENITOURINARY: Denies burning, hematuria or urgency with micturation. HEMATOLOGIC: Denies history of anemia. Denies bleeding. Blood pressure 117/68 heart rate 66 afebrile maintaining oxygen saturation on room air GENERAL: This is a 78-year-old female in no apparent distress at the time of my examination. HEENT: Head is atraumatic, normocephalic. Pupils are equal, round. Sclerae anicteric. Conjunctivae are clear. Mucous membranes of the mouth are moist. Neck is supple. There is no jugular venous distention. No carotid bruit is heard. LUNGS: Clear to auscultation no wheezes, rales or rhonchi. No chest wall tenderness is noted on palpation or with deep breathing. HEART: Regular rate and rhythm with systolic ejection murmur at the left sternal border, no rubs or gallops. S1 and S2 heard. ABDOMEN: Soft, nontender. Bowel sounds are heard. No organomegaly noted. EXTREMITIES: No evidence of peripheral edema and no calf tenderness noted. VASCULAR: Radial and dorsalis pedis pulses palpated, no evidence of clubbing. NEUROLOGIC: Patient is awake, alert and oriented x3. ASSESSMENT Chest pain, atypical for angina. An acute coronary event has been ruled out with no EKG evidence of ischemia and negative cardiac enzymes. Recent cardiac catheterization revealed mild nonobstructive CAD Hypertension Dyslipidemia PLAN An coronary event has been ruled out. Increase atenolol 50 mg daily. Stable from a cardiac perspective, follow-up with Dr. Becerra upon discharge. Ongoing medical management and evaluation of noncardiac chest pain. Thank you kindly for this consultation. The above impression and plan of care have been discussed and directed by the signing physician. Elizabeth Barrow, nurse practitioner, acting as scribe for signing physician. Past Medical History Past Medical History: Chest Pain / Angina, Hyperlipidemia, Hypertension Additional Past Medical History / Comment(s): pt. denies any HLD. possible heart cath History of Any Multi-Drug Resistant Organisms: None Reported Past Surgical History: Hysterectomy, Orthopedic Surgery, Tubal Ligation Additional Past Surgical History / Comment(s): right hand Past Anesthesia/Blood Transfusion Reactions: No Reported Reaction Past Psychological History: No Psychological Hx Reported Smoking Status: Never smoker Past Alcohol Use History: None Reported Past Drug Use History: None Reported - Past Family History Father Family Medical History: Myocardial Infarction ([place]) Additional Family Medical History / Comment(s): father passed from [place] Mother Family Medical History: CVA/TIA, Diabetes Mellitus, Hypertension Sister(s) Family Medical History: Diabetes Mellitus Medications and Allergies Home Medications Medication Instructions Recorded Confirmed Type Cholecalciferol [Vitamin D3] 2,000 unit PO DAILY 05/09/18 11/11/18 History Atenolol 25 mg PO DAILY 11/11/18 11/11/18 History Gabapentin [Neurontin] 300 mg PO TID 11/11/18 11/11/18 History Allergies Allergy/AdvReac Type Severity Reaction Status Date / Time codeine AdvReac MIGRAINE Verified 11/11/18 19:33 Physical Exam Vitals: Vital Signs Temp Pulse Pulse Pulse Resp BP BP 11/12/18 07:00 97.8 F 103 H 18 11/12/18 04:03 97.5 F L 98 15 126/77 11/12/18 04:00 98 15 11/12/18 00:00 94 14 11/11/18 23:39 98.3 F 94 14 130/81 11/11/18 22:25 22 11/11/18 22:15 98.5 F 104 H 20 118/77 11/11/18 21:00 114 H 22 128/76 11/11/18 20:00 111 H 15 101/73 11/11/18 19:30 98.7 F 111 H 20 101/73 11/11/18 19:25 111 H 16 111/74 BP Pulse Ox 11/12/18 07:00 132/79 93 L 11/12/18 04:03 96 11/12/18 04:00 11/12/18 00:00 11/11/18 23:39 94 L 11/11/18 22:25 11/11/18 22:15 95 11/11/18 21:00 97 11/11/18 20:00 97 11/11/18 19:30 97 11/11/18 19:25 97 Intake and Output 11/11/18 11/12/18 11/12/18 22:59 06:59 14:59 Other: Voiding Method Toilet Toilet Bedside Commode Bedside Commode # Voids 1 2 Weight 63.503 kg 63.503 kg Results 11/11/18 19:15 11/11/18 19:15 Cardiac Enzymes 11/11/18 11/11/18 11/12/18 Range/Units 19:15 19:15 00:58 AST 26 (14-36) U/L CK-MB (CK-2) 1.1 1.3 (0.0-2.4) ng/mL Troponin I <0.012 <0.012 (0.000-0.034) ng/mL 11/12/18 Range/Units 06:09 AST (14-36) U/L CK-MB (CK-2) 1.8 (0.0-2.4) ng/mL Troponin I <0.012 (0.000-0.034) ng/mL Coagulation 11/11/18 11/12/18 Range/Units 19:15 06:09 PT 10.0 (9.0-12.0) sec APTT 23.2 39.8 H (22.0-30.0) sec Lipids 11/12/18 Range/Units 06:09 Triglycerides 117 (<150) mg/dL Cholesterol 199 (<200) mg/dL HDL Cholesterol 50 (40-60) mg/dL CBC 11/11/18 Range/Units 19:15 WBC 8.0 (3.8-10.6) k/uL RBC 5.07 (3.80-5.40) m/uL Hgb 15.4 (11.4-16.0) gm/dL Hct 46.8 H (34.0-46.0) % Plt Count 245 (150-450) k/uL Comprehensive Metabolic Panel 11/11/18 Range/Units 19:15 Sodium 141 (137-145) mmol/L Potassium 3.9 (3.5-5.1) mmol/L Chloride 101 (98-107) mmol/L Carbon Dioxide 33 H (22-30) mmol/L BUN 12 (7-17) mg/dL Creatinine 0.43 L (0.52-1.04) mg/dL Glucose 128 H (74-99) mg/dL Calcium 9.4 (8.4-10.2) mg/dL AST 26 (14-36) U/L ALT 26 (9-52) U/L Alkaline Phosphatase 41 (38-126) U/L Total Protein 6.3 (6.3-8.2) g/dL Albumin 3.7 (3.5-5.0) g/dL Current Medications Generic Name Dose Route Start Last Admin Trade Name Freq PRN Reason Stop Dose Admin Aspirin 325 mg 11/12/18 09:00 Aspirin PO DAILY [facility] Atenolol 25 mg 11/12/18 09:00 Tenormin PO DAILY [facility] Cholecalciferol 2,000 unit 11/12/18 09:00 Vitamin D3 PO DAILY [facility] Gabapentin 300 mg 11/11/18 22:00 11/11/18 23:14 Neurontin PO 300 mg TID [facility] Administration Heparin Sodium/Sodium Chloride 250 mls @ 7.62 mls/hr 11/11/18 21:15 11/11/18 22:15 25,000 unit/ Sodium Chloride IV 12 units/kg/hr .Q24H PANKAJ 7.62 mls/hr Administration Protocol 12 UNITS/KG/HR Sodium Chloride 1,000 mls @ 20 mls/hr 11/11/18 21:15 11/11/18 23:47 Saline 0.9% IV 20 mls/hr .Q24H PANKAJ Administration Nitroglycerin 1 inch 11/12/18 00:00 11/12/18 05:52 Nitro-Bid Oint TOPICAL Not Given Q6HR [facility] Nitroglycerin 0.4 mg 11/11/18 21:05 Nitrostat SUBLINGUAL Q5M PRN Chest Pain Intake and Output 11/11/18 11/12/18 11/12/18 22:59 06:59 14:59 Other: Voiding Method Toilet Toilet Bedside Commode Bedside Commode # Voids 1 2 Weight 63.503 kg 63.503 kg 11/11/18 19:15 11/11/18 19:15
[2018-11-12 15:51] VITALS: BP 100/61; PULSE 73; TEMP 98
--- NOTE | 2018-11-12 19:31 | DS ---
DISCHARGE SUMMARY HISTORY AND PHYSICAL/DISCHARGE SUMMARY: DATE OF ADMISSION: November 11, 2018. DATE OF DISCHARGE: November 12, 2018. PRESENTING COMPLAINT: Chest pain. HISTORY OF PRESENTING COMPLAINT: A very pleasant, 78-year-old patient who follows with Dr. Amador. Chronic stable medical conditions include hypertension, hyperlipidemia, osteoarthritis with back and knees. At baseline uses a walker. The patient was sitting down yesterday when she developed tightness across the chest, lasted for a good about half an hour. The patient was short of breath. No perspiration. Became dizzy. The pain then subsequently subsided. The patient has noted this pain occasionally when she uses a walker and getting about, not all the time. The patient admitted to rule in assess for cardiac cause. Troponin did come back negative. The patient is suffering from some distal neuropathy in both upper and lower extremities. No prior cardiac history. Cardiology was consulted. REVIEW OF SYSTEMS: CONSTITUTIONAL: Tired. HEENT: None. CARDIOVASCULAR: As above. GASTROINTESTINAL: None. GENITOURINARY: None. MUSCULOSKELETAL: Pain in different joints especially in the lower back and knees. DERMATOLOGICAL, HEMATOLOGIC, LYMPHATICS: none. PSYCHIATRY none. NEUROLOGICAL: Some weakness and wasting of the distal muscles of the hand and feet. PAST MEDICAL HISTORY: Hypertension, hyperlipidemia, osteoarthritis of the back and knees. PAST SURGICAL HISTORY: Hysterectomy, orthopedic surgery, tubal ligation, right hand carpal tunnel surgery. SOCIAL HISTORY: No smoking, no alcohol. . Uses a walker. FAMILY HISTORY: Father had heart attack. HOME MEDICATIONS: 1. Neurontin 300 mg t.i.d. 2. Atenolol 25 mg p.o. daily. 3. Vitamin D3 2000 units p.o. daily. ALLERGIES: CODEINE. PHYSICAL EXAMINATION: VITAL SIGNS: Vital signs on presentation, temperature 98.7, pulse 111, respiration 20, blood pressure 101/73, pulse ox 97% on room air. GENERAL APPEARANCE: Thin built, lying in bed, awake. EYES: Pupils equal. Conjunctivae normal. HEENT: External appearance of nose and ears normal. Oral cavity normal. NECK: JVD not raised. Mass not palpable. RESPIRATORY: Effort normal. LUNGS: Fair entry. CARDIOVASCULAR: 1st and 2nd sounds normal. No edema. ABDOMEN: Soft, nontender. Liver and spleen not palpable. LYMPHATICS: No lymph nodes palpable in the neck and axilla. PSYCHIATRY: Alert and oriented times three. Mood and affect slightly anxious- appearing. NEUROLOGICAL: Pupils equal. Cranial nerves grossly intact grossly intact. MUSCULOSKELETAL: Some weakness in the muscles of the distal hand and the feet. INVESTIGATIONS: White count 8.0, hemoglobin 15.4, potassium 3.9, BUN 12, creatinine 0.43. Troponin x3 negative. LDL 126. EKG tracing personally reviewed by me shows some nonspecific changes. Chest x-ray film personally reviewed by me shows some unfolding of the aorta and no infiltrates. Also chest x-ray report was reviewed. ASSESSMENT: 1. Anterior chest wall pain with some cardiac component, possible angina. 2. Essential hypertension. 3. Hyperlipidemia. 4. 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 5. Peripheral neuropathy, exact type unknown. 6. Chronic gait dysfunction uses a walker. PLAN: Patient is seen by Cardiology who did increase the patient's beta el. Other home medications to continue. We will order aspirin. The patient to follow up with the costumed character in the office. No further symptoms. Care was discussed with the patient. DISCHARGE MEDICATIONS: 1. Aspirin 81 mg a day. 2. Tenormin 50 mg a day. 3. Vitamin D3 2000 units a day. 4. Neurontin 300 mg t.i.d. 5. Nitrostat 0.4 sublingual q.5 p.r.n. FOLLOWUP: Follow up with Dr. Amador in 1 week. Follow up with Dr. Wilkerson in 1 week. This is both a history/physical and discharge summary on this patient. Copy to Dr. Amador. MMODL / IJN: [id number] /
[2018-11-13] MEDS ORDERED: ATENOLOL 50 MG TAB PO SCH (09:00)
== END 2018-11-12 18:23 | disposition home or self-care (01) ==
LOC: EC 19:10 → 1SOBS 21:05
PROVIDERS: ADMIT Hospitalist; ATTEND Hospitalist
DX: R07.89 Other chest pain (principal); R42 Dizziness and giddiness; R06.00 Dyspnea, unspecified; R06.02 Shortness of breath; R61 Generalized hyperhidrosis; I25.10 Atherosclerotic heart disease of native coronary artery without angina pectoris; E78.5 Hyperlipidemia, unspecified; I10 Essential (primary) hypertension; I48.91 Unspecified atrial fibrillation; Z82.3 Family history of stroke; Z82.49 Family history of ischemic heart disease and other diseases of the circulatory system; M17.0 Bilateral primary osteoarthritis of knee; M47.816 Spondylosis without myelopathy or radiculopathy, lumbar region; G62.9 Polyneuropathy, unspecified; R26.9 Unspecified abnormalities of gait and mobility; Z90.710 Acquired absence of both cervix and uterus; Z83.3 Family history of diabetes mellitus; Z79.899 Other long term (current) drug therapy; Z88.5 Allergy status to narcotic agent
CPT/HCPCS: 99291 ×2; 96365; 96366 ×2; 36415; 93005; 97162; 83880; 80061; 80053; 84443; 82550 ×2; 82553 ×2; 83735; 84484 ×2; 85025; 85610; 85730 ×2; 71046; G0378 ×2; J1644

== ENCOUNTER 2018-11-29 07:41 | Day surgery (SDC) | payer MEDICARE ==
[2018-11-29] MEDS ORDERED: SODIUM CHLORIDE 0.9% 500 ML 500 ML IV SCH (08:14)
[2018-11-29 08:15] VITALS: TEMP 97.1
[2018-11-29] MEDS ORDERED: LACTATED RINGERS 1,000 ML IV ONE (08:16)
[2018-11-29 08:29] LABS: Glucose,Whole Blood 89 mg/dL (75-99)
--- NOTE | 2018-11-29 09:28 | P.PCN ---
Date of Procedure: 11/29/18 Procedure(s) Performed: Procedure=1- Diagnostic lumbar puncture . 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 Condition= stable. Complications=none. Indication for the procedure= patient with a history of symptoms suggestive of motor neuron disease and she was referred to have a lumbar puncture for diagnostic study procedure risk and benefits and alternatives discussed with the patient and she agreed with the preceding, Description of the procedure= patient in the procedure room sitting position and monitors applied, the back prepped with chlorhexidine X 3, sterile technique , local infiltration of the skin and subcu interstitial with lidocaine 1% 2 mL, then 22-gauge quickie Needle advanced slowly at L4 5 interlaminar space, the cerebrospinal fluid was clear, and no heme no paresthesia, a total of 16 mL of clear cerebrospinal fluid collected in 4 different tubes, 4 mL in each to , then the needle removed, Band-Aid applied , patient tolerated the procedure well without any complications, and further management as per her neurologist
[2018-11-29] MEDS ORDERED: IV FLUID CONTINUATION 1,000 ML IV ONE ×2 (09:30)
[2018-11-29 09:45] VITALS: BP 110/68; PULSE 90; RESP 18
[2018-11-29 10:30] LABS: Appearance,CSF Clear; CSF Tube Number 1; Glucose,CSF 66 mg/dL (40-70)
[2018-11-29 10:31] LABS: Appearance,CSF Clear; CSF Tube Number 3
[2018-11-29 10:38] LABS: Total Protein,CSF 40 mg/dL (12-60)
[2018-11-29 11:19] LABS: Nucleated Cells, CSF 0 u/L (0-5); Red Blood Cell,CSF 4 u/L (0-10)
[2018-11-29 11:20] LABS: Nucleated Cells, CSF 0 u/L (0-5); Red Blood Cell,CSF 1 u/L (0-10)
[2018-12-01 10:41] LABS: VDRL, Qualitative CSF Nonreactive (Nonreactive)
== END 2018-11-29 10:10 | disposition home or self-care (01) ==
LOC: ORPAIN 07:41
PROVIDERS: ATTEND Specialist
DX: G12.20 Motor neuron disease, unspecified (principal); I25.10 Atherosclerotic heart disease of native coronary artery without angina pectoris; I10 Essential (primary) hypertension; Z88.6 Allergy status to analgesic agent; Z88.5 Allergy status to narcotic agent
CPT/HCPCS: 86592; 84157; 82945; 83916; 89050; 87070; 87205; 62270; J2250; J2001

== ENCOUNTER 2018-12-03 07:12 | Inpatient (IN) | payer MEDICARE ==
--- NOTE | 2018-12-03 07:32 | ED ---
General Adult HPI - General Chief complaint: Shortness of Breath Stated complaint: GORGE Time Seen by Provider: 12/03/18 07:15 Source: patient, EMS Mode of arrival: EMS Limitations: physical limitation - History of Present Illness Initial comments: Dictation was produced using [employer] dictation software. please excuse any grammatical, word or spelling errors. Chief Complaint: 78-year-old female with chief complaint of shortness of breath. History of Present Illness: She is 78-year-old female with past medical history of dyslipidemia, hypertension. Patient reports that she's been short of breath since 5:00 this morning. Patient told EMS was transferred to the emergency department. EMS not available for report. Nurse received report from EMS reports that patient had called 911 for shortness of breath. She was transferred here to the emergency department. Patient denies any history of COPD or asthma. The ROS documented in this emergency department record has been reviewed and confirmed by me. Those systems with pertinent positive or negative responses have been documented in the HPI. All other systems are other negative and/or noncontributory. PHYSICAL EXAM: General Impression: Alert and oriented x3, not in acute distress HEENT: Normocephalic atraumatic, extra-ocular movements intact, pupils equal and reactive to light bilaterally, mucous membranes moist. Cardiovascular: Heart regular rate and rhythm, S1&S2 audible, no murmurs, rubs or gallops Chest: Lungs clear to auscultation bilaterally, no rhonchi, no wheeze, no rales Abdomen: Bowel sounds present, abdomen soft, non-tender, non-distended, no organomegaly Musculoskeletal: Pulses present and equal in all extremities, no peripheral edema Motor: Power 5/5 bilaterally, no focal deficits noted Neurological: CN II-XII grossly intact, no focal motor or sensory deficits noted Skin: Intact with no visualized rashes Psych: Anxious ED course: She is 78-year-old female presents with chief complaint of shortness of breath. Patient appears anxious at this time. Lung sounds are clear to auscultation bilaterally. Patient has any pain complaints. Signs upon arrival shows 93% on 4 L nasal cannula. Laboratory evaluation obtained. CBC, coag panel, metabolic panel is grossly unremarkable. Influenza is negative. Blood gas shows findings within acceptable limits. Chest x-ray is unremarkable. Ambulatory O2 was performed with hypoxia during ambulation. Patient has tried to be weaned off of nasal cannula and had hypoxia to the high 80s. More history was obtained from patient. Patient states she's been having productive cough. There is clinical suspicion that this may be early signs of pneumonia. Patient given azithromycin and ceftriaxone treatment acquired pneumonia. He should be admitted observation under sound physician group. EKG interpretation: Ventricular rate 86, normal sinus rhythm, W[place] interval 170, QRS 68, QTc 440. No W[place] prolongation, no QTC prolongation, no ST or T-wave changes noted. s. Overall, this EKG is unremarkable - Related Data Home Medications Medication Instructions Recorded Confirmed Cholecalciferol [Vitamin D3] 2,000 unit PO DAILY 05/09/18 12/03/18 Gabapentin [Neurontin] 300 mg PO TID 11/11/18 12/03/18 Albuterol Inhaler [Ventolin Hfa 1 - 2 puff INHALATION RT-Q6H PRN 12/03/18 Inhaler] Fluticasone Nasal [place] [Flonase 2 spr EA NOSTRIL DAILY 12/03/18 12/03/18 Nasal [place]] Ranitidine HCl [Zantac] 150 mg PO DAILY PRN 12/03/18 12/03/18 Previous Rx's Medication Instructions Recorded Aspirin 81 mg PO DAILY #30 chewable 11/12/18 Atenolol [Tenormin] 50 mg PO DAILY #30 tab 11/12/18 Nitroglycerin Sl Tabs [Nitrostat] 0.4 mg SUBLINGUAL Q5M PRN #25 tab 11/12/18 Allergies Allergy/AdvReac Type Severity Reaction Status Date / Time codeine AdvReac MIGRAINE Verified 12/03/18 09:46 Review of Systems ROS Statement: Those systems with pertinent positive or pertinent negative responses have been documented in the HPI. ROS Other: All systems not noted in ROS Statement are negative. Past Medical History Past Medical History: Chest Pain / Angina, Hyperlipidemia, Hypertension Additional Past Medical History / Comment(s): pt. denies any HLD. possible heart cath History of Any Multi-Drug Resistant Organisms: None Reported Past Surgical History: Hysterectomy, Orthopedic Surgery, Tubal Ligation Additional Past Surgical History / Comment(s): right hand Past Anesthesia/Blood Transfusion Reactions: No Reported Reaction Past Psychological History: No Psychological Hx Reported Smoking Status: Never smoker Past Alcohol Use History: None Reported Past Drug Use History: None Reported - Past Family History Father Family Medical History: Myocardial Infarction ([place]) Additional Family Medical History / Comment(s): father passed from [place] Mother Family Medical History: CVA/TIA, Diabetes Mellitus, Hypertension Sister(s) Family Medical History: Diabetes Mellitus General Exam Limitations: physical limitation Course Vital Signs 12/03/18 12/03/18 12/03/18 07:21 09:10 09:39 Temperature 98.2 F Pulse Rate 97 90 Respiratory 22 Rate Blood Pressure 143/98 O2 Sat by Pulse 93 L 89 L Oximetry 12/03/18 09:48 Temperature 98.1 F Pulse Rate 94 Respiratory 24 Rate Blood Pressure 163/92 O2 Sat by Pulse 96 Oximetry Medical Decision Making - Medical Decision Making Pulmonology placed on consultation. - Lab Data Result diagrams: 12/03/18 07:18 12/03/18 07:18 Lab Results 12/03/18 12/03/18 12/03/18 Range/Units 07:18 07:18 07:18 WBC 7.7 (3.8-10.6) k/uL RBC 5.31 (3.80-5.40) m/uL Hgb 15.7 (11.4-16.0) gm/dL Hct 49.8 H (34.0-46.0) % MCV 93.7 (80.0-100.0) fL MCH 29.5 (25.0-35.0) pg MCHC 31.5 (31.0-37.0) g/dL RDW 13.6 (11.5-15.5) % Plt Count 221 (150-450) k/uL Neutrophils % 74 % Lymphocytes % 19 % Monocytes % 5 % Eosinophils % 1 % Basophils % 0 % Neutrophils # 5.7 (1.3-7.7) k/uL Lymphocytes # 1.4 (1.0-4.8) k/uL Monocytes # 0.4 (0-1.0) k/uL Eosinophils # 0.1 (0-0.7) k/uL Basophils # 0.0 (0-0.2) k/uL PT (9.0-12.0) sec INR (<1.2) APTT (22.0-30.0) sec VBG pH (7.31-7.41) VBG pCO2 (37-51) mmHg VBG HCO3 (24-28) mmol/L Sodium 141 (137-145) mmol/L Potassium 4.4 (3.5-5.1) mmol/L Chloride 101 (98-107) mmol/L Carbon Dioxide 35 H (22-30) mmol/L Anion Gap 5 mmol/L BUN 12 (7-17) mg/dL Creatinine 0.32 L (0.52-1.04) mg/dL Est GFR (CKD-EPI)AfAm >90 (>60 ml/min/1.73 sqM) Est GFR (CKD-EPI)NonAf >90 (>60 ml/min/1.73 sqM) Glucose 150 H (74-99) mg/dL Calcium 9.0 (8.4-10.2) mg/dL Magnesium 2.1 (1.6-2.3) mg/dL Total Bilirubin 0.6 (0.2-1.3) mg/dL AST 25 (14-36) U/L ALT 34 (9-52) U/L Alkaline Phosphatase 42 (38-126) U/L Total Creatine Kinase 31 (30-135) U/L CK-MB (CK-2) 1.0 (0.0-2.4) ng/mL CK-MB (CK-2) Rel Index 3.2 Troponin I <0.012 (0.000-0.034) ng/mL NT-Pro-B Natriuret Pep pg/mL Total Protein 6.5 (6.3-8.2) g/dL Albumin 3.8 (3.5-5.0) g/dL Influenza Type A RNA (Not Detectd) Influenza Type B (PCR) (Not Detectd) 12/03/18 12/03/18 12/03/18 Range/Units 07:18 07:18 07:37 WBC (3.8-10.6) k/uL RBC (3.80-5.40) m/uL Hgb (11.4-16.0) gm/dL Hct (34.0-46.0) % MCV (80.0-100.0) fL MCH (25.0-35.0) pg MCHC (31.0-37.0) g/dL RDW (11.5-15.5) % Plt Count (150-450) k/uL Neutrophils % % Lymphocytes % % Monocytes % % Eosinophils % % Basophils % % Neutrophils # (1.3-7.7) k/uL Lymphocytes # (1.0-4.8) k/uL Monocytes # (0-1.0) k/uL Eosinophils # (0-0.7) k/uL Basophils # (0-0.2) k/uL PT 10.2 (9.0-12.0) sec INR 0.9 (<1.2) APTT 23.2 (22.0-30.0) sec VBG pH 7.42 H (7.31-7.41) VBG pCO2 54 H (37-51) mmHg VBG HCO3 34 H (24-28) mmol/L Sodium (137-145) mmol/L Potassium (3.5-5.1) mmol/L Chloride (98-107) mmol/L Carbon Dioxide (22-30) mmol/L Anion Gap mmol/L BUN (7-17) mg/dL Creatinine (0.52-1.04) mg/dL Est GFR (CKD-EPI)AfAm (>60 ml/min/1.73 sqM) Est GFR (CKD-EPI)NonAf (>60 ml/min/1.73 sqM) Glucose (74-99) mg/dL Calcium (8.4-10.2) mg/dL Magnesium (1.6-2.3) mg/dL Total Bilirubin (0.2-1.3) mg/dL AST (14-36) U/L ALT (9-52) U/L Alkaline Phosphatase (38-126) U/L Total Creatine Kinase (30-135) U/L CK-MB (CK-2) (0.0-2.4) ng/mL CK-MB (CK-2) Rel Index Troponin I (0.000-0.034) ng/mL NT-Pro-B Natriuret Pep 144 pg/mL Total Protein (6.3-8.2) g/dL Albumin (3.5-5.0) g/dL Influenza Type A RNA (Not Detectd) Influenza Type B (PCR) (Not Detectd) 12/03/18 Range/Units 07:40 WBC (3.8-10.6) k/uL RBC (3.80-5.40) m/uL Hgb (11.4-16.0) gm/dL Hct (34.0-46.0) % MCV (80.0-100.0) fL MCH (25.0-35.0) pg MCHC (31.0-37.0) g/dL RDW (11.5-15.5) % Plt Count (150-450) k/uL Neutrophils % % Lymphocytes % % Monocytes % % Eosinophils % % Basophils % % Neutrophils # (1.3-7.7) k/uL Lymphocytes # (1.0-4.8) k/uL Monocytes # (0-1.0) k/uL Eosinophils # (0-0.7) k/uL Basophils # (0-0.2) k/uL PT (9.0-12.0) sec INR (<1.2) APTT (22.0-30.0) sec VBG pH (7.31-7.41) VBG pCO2 (37-51) mmHg VBG HCO3 (24-28) mmol/L Sodium (137-145) mmol/L Potassium (3.5-5.1) mmol/L Chloride (98-107) mmol/L Carbon Dioxide (22-30) mmol/L Anion Gap mmol/L BUN (7-17) mg/dL Creatinine (0.52-1.04) mg/dL Est GFR (CKD-EPI)AfAm (>60 ml/min/1.73 sqM) Est GFR (CKD-EPI)NonAf (>60 ml/min/1.73 sqM) Glucose (74-99) mg/dL Calcium (8.4-10.2) mg/dL Magnesium (1.6-2.3) mg/dL Total Bilirubin (0.2-1.3) mg/dL AST (14-36) U/L ALT (9-52) U/L Alkaline Phosphatase (38-126) U/L Total Creatine Kinase (30-135) U/L CK-MB (CK-2) (0.0-2.4) ng/mL CK-MB (CK-2) Rel Index Troponin I (0.000-0.034) ng/mL NT-Pro-B Natriuret Pep pg/mL Total Protein (6.3-8.2) g/dL Albumin (3.5-5.0) g/dL Influenza Type A RNA Not Detected (Not Detectd) Influenza Type B (PCR) Not Detected (Not Detectd) Disposition Clinical Impression: Acute respiratory failure with hypoxia Disposition: ADMITTED IP TO THIS HOSP Condition: Fair Is patient prescribed a controlled substance at d/c from ED?: No Referrals: Salvador Amador MD [Primary Care Provider] - 1-2 days Decision Time: 09:59
[2018-12-03 08:03] LABS: Basophils % (A) 0 %; Eosinophils # (A) 0.1 k/uL (0-0.7); Eosinophils % (A) 1 %; HCT 49.8 % (34.0-46.0); HGB 15.7 gm/dL (11.4-16.0); Lymphocytes # (A) 1.4 k/uL (1.0-4.8); Lymphocytes % (A) 19 %; MCH 29.5 pg (25.0-35.0); MCHC 31.5 g/dL (31.0-37.0); MCV 93.7 fL (80.0-100.0); Mean Platelet Volume 6.9; Monocytes # (A) 0.4 k/uL (0-1.0); Monocytes % (A) 5 %; Neutrophils # (A) 5.7 k/uL (1.3-7.7); Neutrophils % (A) 74 %; Platelet Count 221 k/uL (150-450); RBC 5.31 m/uL (3.80-5.40); RDW 13.6 % (11.5-15.5); WBC 7.7 k/uL (3.8-10.6)
--- NOTE | 2018-12-03 08:06 | XR ---
EXAMINATION TYPE: XR chest 2V DATE OF EXAM: 12/03/2018 COMPARISON: 11/11/2018 HISTORY: Shortness of breath TECHNIQUE: Frontal and lateral views of the chest are obtained. FINDINGS: Scattered senescent parenchymal changes noted. Hyperinflation compatible with COPD. No evidence for infiltrate. No evidence for atelectasis. Heart size is stable. Mediastinal structures are stable and grossly unremarkable. No evidence for hilar prominence. Degenerative changes dorsal spine. IMPRESSION: 1. No evidence for acute pulmonary disease.
[2018-12-03 08:13] LABS: ALT 34 U/L (9-52); AST 25 U/L (14-36); Albumin 3.8 g/dL (3.5-5.0); Alkaline Phosphatase 42 U/L (38-126); Anion Gap 5 mmol/L; Blood Urea Nitrogen 12 mg/dL (7-17); Carbon Dioxide 35 mmol/L (22-30); Chloride 101 mmol/L (98-107); Glucose 150 mg/dL (74-99); Magnesium 2.1 mg/dL (1.6-2.3); Potassium 4.4 mmol/L (3.5-5.1); Sodium 141 mmol/L (137-145); Total Bilirubin 0.6 mg/dL (0.2-1.3); Total Protein 6.5 g/dL (6.3-8.2)
[2018-12-03 08:17] LABS: INR 0.9 (<1.2); Partial Thromboplastin Time 23.2 sec (22.0-30.0); Prothrombin Time 10.2 sec (9.0-12.0)
[2018-12-03 08:18] LABS: VBG PH 7.42 (7.31-7.41)
[2018-12-03 08:32] LABS: Creatine Kinase 31 U/L (30-135)
[2018-12-03 08:45] LABS: Troponin I <0.012 ng/mL (0.000-0.034)
[2018-12-03] MEDS ORDERED: AZITHROMYCIN 500 MG in SODIUM CHLORIDE 0.9% 250 ML IVPB STA (09:53)
[2018-12-03] MEDS ORDERED: NALOXONE 0.4 MG/ML 1 ML VIAL IV PRN (10:00)
[2018-12-03] MEDS: SODIUM CHLORIDE 0.9% 1,000 ML IV SCH (13:08)
[2018-12-03] MEDS ORDERED: ALBUTEROL NEBULIZED 2.5 MG/3 ML INHALATION PRN (13:31)
--- NOTE | 2018-12-03 13:52 | P.HPIM ---
History of Present Illness H&P Date: 12/03/18 Chief Complaint: shortness of breath 78-year-old female with PMH of hypertension, hyperlipidemia presents to the ED for shortness of breath. Patient reports that she woke up at 4 AM hungry. She proceeded to eat breakfast , bowl of cereal. Patient reports choking on her cereal, acutely making her short of breath. Since then, patient reports difficulty catching her breath and an inability to cough. She has seen ENT Dr. Luevanofor issues related to her voice box. Patient also reports losing weight, went from 190 pounds 232 pounds over the past 10 months. She associates the weight loss with decreased appetite. She also complains of a generalized weakness. Patient ambulates with a walker and lives with her . Patient is in constant fear of frequent falls due to weakness at her knees bilaterally. She denies any headaches, lower extremity edema, nausea, vomiting, fever, chest pain, palpitations, changes in urination or bowel habits. In the ED, patient was noted to be hypoxic at a low of 89% on room air. She had a respiratory rate as high as 40. CBC and CMP were fairly unremarkable except for bicarbonate of 35, glucose of 150. Initial troponin was less than 0.012. BNP was 144, within normal limits. Influenza was negative. ABG showed respiratory acidosis with metabolic alkalosis. Chest x-ray was unremarkable. Patient is admitted for treatment and pneumonia, pulmonology on consult. Review of Systems All systems: negative Past Medical History Past Medical History: Chest Pain / Angina, Hyperlipidemia, Hypertension Additional Past Medical History / Comment(s): pt. denies any HLD. possible heart cath History of Any Multi-Drug Resistant Organisms: None Reported Past Surgical History: Hysterectomy, Orthopedic Surgery, Tubal Ligation Additional Past Surgical History / Comment(s): right hand Past Anesthesia/Blood Transfusion Reactions: No Reported Reaction Past Psychological History: No Psychological Hx Reported Smoking Status: Never smoker Past Alcohol Use History: None Reported Past Drug Use History: None Reported - Past Family History Father Family Medical History: Myocardial Infarction ([place]) Additional Family Medical History / Comment(s): father passed from [place] Mother Family Medical History: CVA/TIA, Diabetes Mellitus, Hypertension Sister(s) Family Medical History: Diabetes Mellitus Medications and Allergies Home Medications Medication Instructions Recorded Confirmed Type Cholecalciferol [Vitamin D3] 2,000 unit PO DAILY 05/09/18 12/03/18 History Gabapentin [Neurontin] 300 mg PO TID 11/11/18 12/03/18 History Aspirin 81 mg PO DAILY #30 chewable 11/12/18 12/03/18 Rx Atenolol [Tenormin] 50 mg PO DAILY #30 tab 11/12/18 12/03/18 Rx Nitroglycerin Sl Tabs [Nitrostat] 0.4 mg SUBLINGUAL Q5M PRN #25 tab 11/12/1801/16 Rx Albuterol Inhaler [Ventolin Hfa 1 - 2 puff INHALATION RT-Q6H PRN 12/03/18 History Inhaler] Fluticasone Nasal [place] [Flonase 2 spr EA NOSTRIL DAILY 12/03/18 12/03/18 History Nasal [place]] Ranitidine HCl [Zantac] 150 mg PO DAILY PRN 12/03/18 12/03/18 History Allergies Allergy/AdvReac Type Severity Reaction Status Date / Time codeine AdvReac MIGRAINE Verified 12/03/18 09:46 Physical Exam Vitals: Vital Signs Temp Pulse Pulse Resp BP BP Pulse Ox 12/03/18 11:49 92 40 H 12/03/18 10:18 97.6 F 92 40 H 105/65 97 12/03/18 10:00 91 19 116/77 95 12/03/18 09:48 98.1 F 94 24 163/92 96 12/03/18 09:39 89 L 12/03/18 09:10 90 12/03/18 07:21 98.2 F 97 22 143/98 93 L Intake and Output 12/02/18 12/03/18 12/03/18 22:59 06:59 14:59 Other: Voiding Method Toilet Bedside Commode Weight 59.874 kg General: [non toxic], [appears dyspneic], [appears at stated age] Derm: [warm], [dry] Head: [atraumatic], [normocephalic], [symmetric] Eyes: [EOMI], [no lid lag], [anicteric sclera] Mouth: [no lip lesion], [mucus membranes moist] Cardiovascular: [S1S2 reg], [tachycardia], [positive DP pulse bilateral], Lungs: [CTA bilateral], [no rhonchi, no rales] , [no accessory muscle use] Abdominal: [soft], [ nontender to palpation], [no guarding], [no appreciable organomegaly] Ext: [no gross muscle atrophy], [no edema], [no contractures] Neuro: [ CN II-XI grossly intact], [4-5 bilateral lower nguyễn] Psych: [Alert], [oriented], [appropriate affect] Results CBC & Chem 7: 12/03/18 07:18 12/03/18 07:18 Labs: Abnormal Lab Results - Last 24 Hours (Table) 12/03/18 12/03/18 12/03/18 Range/Units 07:18 07:18 07:37 Hct 49.8 H (34.0-46.0) % VBG pH 7.42 H (7.31-7.41) VBG pCO2 54 H (37-51) mmHg VBG HCO3 34 H (24-28) mmol/L Carbon Dioxide 35 H (22-30) mmol/L Creatinine 0.32 L (0.52-1.04) mg/dL Glucose 150 H (74-99) mg/dL Thrombosis Risk Factor Assmnt - Choose All That Apply Any of the Below Risk Factors Present?: No Other Risk Factors: Yes Each Risk Factor Represents 3 Points: Age 75 years or older Thrombosis Risk Factor Assessment Total Risk Factor Score: 3 Thrombosis Risk Factor Assessment Level: Moderate Risk Assessment and Plan Assessment: Assessment and Plan 1. Acute hypoxic hypercarbic respiratory failure likely secondary to aspiration pneumonia 2. Aspiration pneumonia 3. generalized weakness 4. Hypertension 1. This is likely secondary to aspiration pneumonia. Patient is afebrile no leukocytosis. Chest x-ray is negative. nothing by mouth pending swallow eval. Will start ampicillin with sulbactam IV. Albuterol nebulizer as needed. Oxygen per nasal cannula to maintain an oxygen saturation greater than 92%. Will follow pulmonology recommendations. 2. Management as above. 3. Possibly deconditioning. Will follow B12, TSH and RPR. PT to evaluate. 4. BP 105/65. Continue atenolol 50 mg by mouth daily. Monitor vitals, adjust medications as necessary. Heparin and Protonix for DVT and GI prophylaxis. Patient states that she would like to remain full code. Patient admitted for aspiration pneumonia, pulmonology on consult. She is pending clinical improvement.
[2018-12-03] MEDS: AMPICILLIN-SULBACTAM 3 GM in SODIUM CHLORIDE 0.9% 100 ML IVPB SCH ×2 (18:47→23:39)
[2018-12-03] MEDS: GABAPENTIN 300 MG CAP PO SCH ×2 (18:47→21:01)
[2018-12-03] MEDS: HEPARIN SODIUM,PORCINE 5,000 UNIT/ML 1 ML VIAL SQ SCH (21:01)
[2018-12-04 08:46] LABS: T4, Free (Free Thyroxine) 0.95 ng/dL (0.78-2.19)
[2018-12-04] MEDS ORDERED: PANTOPRAZOLE 40 MG/10 ML VIAL IV SCH (09:00)
[2018-12-04] MEDS: AMPICILLIN-SULBACTAM 3 GM in SODIUM CHLORIDE 0.9% 100 ML IVPB SCH ×2 (10:08→16:26)
[2018-12-04] MEDS: ATENOLOL 50 MG TAB PO SCH (10:11)
[2018-12-04] MEDS: GABAPENTIN 300 MG CAP PO SCH ×3 (10:11→21:26)
[2018-12-04] MEDS: HEPARIN SODIUM,PORCINE 5,000 UNIT/ML 1 ML VIAL SQ SCH ×2 (10:11→21:26)
[2018-12-04] MEDS: ASPIRIN 81 MG PO SCH (10:11)
[2018-12-04] MEDS: ACETAMINOPHEN TAB 325 MG TAB PO PRN (10:18)
--- NOTE | 2018-12-04 11:08 | CT ---
EXAMINATION TYPE: CT angio head neck DATE OF EXAM: 12/04/2018 HISTORY: OLD right sided weakness COMPARISON: 11/15/2016 CT DLP: 217.8 mGycm. Automated Exposure Control for Dose Reduction was Utilized. TECHNIQUE: CTA scan of the neck is performed with IV Contrast, patient injected with 65 mL of Isovue 370, axial images are obtained, coronal and sagittal reformatted images are reviewed. Three-D recons tructed images are created on an independent workstation and reviewed. FINDINGS: Carotid/Vascular Structures: There is a conventional three-vessel branch pattern of the aortic arch. Common carotid arteries are patent. Nonhemodynamically significant calcific plaquing is seen of the l eft carotid bulb with less than 50% stenosis when viewed on axial and sagittal images. The cervical p ortion of the internal carotid arteries also remain patent. Minimal calcific atheromatous changes see n of the right supraclinoid portion of the internal carotid artery. The vertebral arteries are patent and codominant. 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 No evidence of vascular dissection or focal occlusion is seen of the remaining intracranial vasculature. There is origin of the left posterior cerebral artery. Other: Emphysematous changes are seen of the lung apices. Moderate multilevel degenerative change of the spine is noted. Paranasal sinuses and mastoid air cells are well aerated. IMPRESSION: 1. 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 2. No focal large vessel arterial occlusion of the head or neck. No evidence of dissection.
[2018-12-04] MEDS ORDERED: RX INFO: IV CONTRAST WAS GIVEN 1 EACH MISC MISCELLANE PRN (11:14)
[2018-12-04] MEDS: SODIUM CHLORIDE 0.9% 1,000 ML IV SCH (14:32)
[2018-12-04] MEDS: FLUCONAZOLE 100 MG TAB PO SCH (16:26)
--- NOTE | 2018-12-04 16:28 | P.CNPUL ---
History of Present Illness Consult date: 12/04/18 Chief complaint: Aspiration History of present illness: A 78-year-old female patient comes into the hospital because of worsening shortness of breath. Apparently this patient has been having issues with her voice, swallow addition to that the patient has been losing weight and she claims that she has lost about 50 pounds. She also has noted some weakness in her left side of the body for which she has seen Dr. Cheng and no final diagnoses been established. 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 This was seen back in 2017. No evidence of any dissection. No other abnormalities noted. The patient came in to the hospital after she aspirated on a piece of cereal. Chest x-ray reveals no significant pneumonia. BNP was nonelevated. Influenza screen was negative. The blood work shows some mild metabolic alkalosis. Creatinine is down to 0.32. Chest x-ray is not showing any acute pulmonary infiltrates or pneumonia. The patient is currently on IV Unasyn. Review of Systems Constitutional: Reports weakness, Reports weight loss Eyes: denies as per HPI, denies blurred vision, denies bulging eye, denies decreased vision, denies diplopia, denies discharge, denies dry eye, denies irritation, denies itching, denies pain, denies photophobia, denies loss of peripheral vision, denies loss of vision, denies tunnel vision/blind spots Ears: deny: decreased hearing, ear discharge, earache, tinnitus Ears, nose, mouth and throat: Reports dysphagia, Reports voice changes Breasts: absent: as per HPI, change in shape, gynecomastia, masses, nipple discharge, pain, skin changes, swelling Cardiovascular: Reports decreased exercise tolerance, Reports dyspnea on exertion Respiratory: Reports dyspnea Gastrointestinal: Reports as per HPI Genitourinary: Reports as per HPI Menstruation: Reports as per HPI Musculoskeletal: Reports as per HPI Musculoskeletal: absent: ankle pain, ankle stiffness, ankle swelling, as per HPI , elbow pain, elbow stiffness, elbow swelling, foot pain, foot stiffness, foot swelling, hand pain, hand stiffness, hand swelling, hip pain, hip stiffness, hip swelling, knee pain, knee stiffness, knee swelling, shoulder pain, shoulder stiffness, shoulder swelling, wrist pain, wrist stiffness, wrist swelling Integumentary: Reports as per HPI Neurological: Reports as per HPI, Reports weakness Psychiatric: Reports as per HPI Past Medical History Past Medical History: Chest Pain / Angina, Hyperlipidemia, Hypertension History of Any Multi-Drug Resistant Organisms: None Reported Past Surgical History: Hysterectomy, Orthopedic Surgery, Tubal Ligation Additional Past Surgical History / Comment(s): right hand Past Anesthesia/Blood Transfusion Reactions: No Reported Reaction Past Psychological History: No Psychological Hx Reported Smoking Status: Never smoker Past Alcohol Use History: None Reported Past Drug Use History: None Reported - Past Family History Father Family Medical History: Myocardial Infarction ([place]) Additional Family Medical History / Comment(s): father passed from [place] Mother Family Medical History: CVA/TIA, Diabetes Mellitus, Hypertension Sister(s) Family Medical History: Diabetes Mellitus Medications and Allergies Home Medications Medication Instructions Recorded Confirmed Type Cholecalciferol [Vitamin D3] 2,000 unit PO DAILY 05/09/18 12/03/18 History Gabapentin [Neurontin] 300 mg PO TID 11/11/18 12/03/18 History Aspirin 81 mg PO DAILY #30 chewable 11/12/18 12/03/18 Rx Atenolol [Tenormin] 50 mg PO DAILY #30 tab 11/12/18 12/03/18 Rx Nitroglycerin Sl Tabs [Nitrostat] 0.4 mg SUBLINGUAL Q5M PRN #25 tab 11/12/1801/16 Rx Albuterol Inhaler [Ventolin Hfa 1 - 2 puff INHALATION RT-Q6H PRN 12/03/18 History Inhaler] Fluticasone Nasal [place] [Flonase 2 spr EA NOSTRIL DAILY 12/03/18 12/03/18 History Nasal [place]] Ranitidine HCl [Zantac] 150 mg PO DAILY PRN 12/03/18 12/03/18 History Allergies Allergy/AdvReac Type Severity Reaction Status Date / Time codeine AdvReac MIGRAINE Verified 12/03/18 09:46 Physical Exam Vitals: Vital Signs Temp Pulse Resp BP BP Pulse Ox 12/04/18 11:31 97.1 F L 61 18 92/57 98 12/04/18 08:30 98 F 91 18 94/55 99 12/04/18 05:25 97.5 F L 87 18 104/69 99 12/03/18 21:16 98.2 F 91 20 95/58 97 Intake and Output 12/04/18 12/04/18 12/04/18 06:59 14:59 22:59 Intake Total 100 Balance 100 Intake: Intake, IV Titration 100 Amount Ampicillin-Sulbactam 3 gm 100 In Sodium Chloride 0.9% 100 ml @ 200 mls/hr IVPB Q8HR [facility] Rx#:[id number] Other: Voiding Method Toilet Toilet Bedside Commode Bedside Commode # Voids 2 1 Gen. appearance, comfortable likely distress Head exam was generally normal. There was no scleral icterus or corneal arcus. Mucous membranes were moist. Neck was supple and without jugular venous distension, thyromegaly, or carotid bruits. Carotids were easily palpable bilaterally. There was no adenopathy. Lungs diminished breath sounds bilaterally especially lung bases. Air entry is diminished throughout the lung saenz specially in the lung bases bilaterally. Cardiac exam revealed the PMI to be normally situated and sized. The rhythm was regular and no extrasystoles were noted during several minutes of auscultation. The first and second heart sounds were normal and physiologic splitting of the second heart sound was noted. There were no murmurs, rubs, clicks, or gallops. Abdominal exam revealed normal bowel sounds. The abdomen was soft, non-tender, and without masses, organomegaly, or appreciable enlargement of the abdominal aorta. Examination of the extremities revealed easily palpable radial, femoral and pedal pulses. There was no cyanosis, clubbing or edema. Examination of the skin revealed no evidence of significant rashes, suspicious appearing nevi or other concerning lesions. Neurologically the patient has a weak left upper and left lower extremity on the left compared to the right. Results - Laboratory Findings CBC and BMP: 12/03/18 07:18 12/03/18 07:18 PT/INR, D-dimer PT 10.2 sec (9.0-12.0) 12/03/18 07:18 INR 0.9 (<1.2) 12/03/18 07:18 Abnormal lab findings: Abnormal Labs 12/03/18 12/03/18 12/03/18 07:18 07:18 07:37 Hct 49.8 H VBG pH 7.42 H VBG pCO2 54 H VBG HCO3 34 H Carbon Dioxide 35 H Creatinine 0.32 L Glucose 150 H TSH 12/04/18 06:40 Hct VBG pH VBG pCO2 VBG HCO3 Carbon Dioxide Creatinine Glucose TSH 0.451 L - Diagnostic Findings Chest x-ray: image reviewed Assessment and Plan Plan: Assessment 1 dysphagia, aspiration in addition to weight loss. Consider chronic aspiration. CAT scan of the chest from April 2018 was within normal limits. The mediastinum is widened the chest x-ray and this is related to her thoracic or tinnitus ectatic. 2 chronic hypercapnic respiratory failure with compensatory metabolic alkalosis 3 left-sided weakness, unexplained, rule out a neurodegenerative disorder 4 hypertension 5 osteoarthritis 6 chronic gait dysfunction uses a walker Plan Proceed with aspiration precautions, IV Unasyn and proceed with a swallow evaluation. We'll need an urology evaluation on outpatient basis to be investigated for neurodegenerative disorders . Overall pulmonary status is stable. We'll continue to follow.
[2018-12-05] MEDS: AMPICILLIN-SULBACTAM 3 GM in SODIUM CHLORIDE 0.9% 100 ML IVPB SCH ×4 (00:01→23:09)
--- NOTE | 2018-12-05 07:37 | PN ---
PROGRESS NOTE DATE OF SERVICE: 12/04/2018 PRESENTING COMPLAINT: Cough. INTERVAL HISTORY: This patient admitted with what appears to be aspiration pneumonia for which patient is on IV Unasyn. Also patient had a swallow evaluation that only some problem with thin liquids. Patient over a course of 10 months has weakness in the legs and arms, finding it difficult to get out of chairs. Also speech has becoming slow. Patient is afraid of eating because of choking and lost some weight. Patient's speech has also become slow. REVIEW OF SYSTEMS: Done for constitutional, cardiovascular, GI, pulmonary; relevant findings as above. CURRENT MEDICATIONS: Reviewed that include IV Unasyn. PHYSICAL EXAMINATION: Temperature 97.1, pulse 81, respiration 18, blood pressure 92/57, pulse ox 98% on room air. GENERAL APPEARANCE: Sitting on bed, eating a lunch. EYES: Pupils equal, conjunctivae normal. NECK: JVD not raised. Mass not palpable. RESPIRATORY: Effort normal. LUNGS: Decreased breath sounds. CARDIOVASCULAR: First and second sounds are normal, no edema. ABDOMEN: Soft, nontender. Liver and spleen not palpable. PSYCHIATRY: Alert and oriented x3. Mood and affect slightly low appearing. NEUROLOGICAL: There is proximal muscle weakness in both the upper and lower extremity but patient is able to raise her hand above the head. Speech is slightly slow and slightly hot potato speech. INVESTIGATIONS: White count 7.7, hemoglobin 15.7, potassium 4.4, BUN 13, creatinine 0.32. The patient's TH is 0.4, free T4 is 0.95. Influenza A and B is negative. Patient's treponema pallidum antibody is nonreactive. CT angio of the brain is also noted. ASSESSMENT: 1. Bilateral aspiration pneumonia, improving. 2. Progressive weakness of the arms and legs with some proximal myopathy involving speech. This could be neurodegenerative disorder. Need to rule out a brainstem process. Patient will need further workup as an outpatient. 3. Hyperlipidemia. 4. Essential hypertension. PLAN: Continue with IV antibiotics, other medications as per speech therapist. Also put the patient on Pepcid. Physical Therapy is already involved. Will follow from there. MMODL / IJN: [id number] /
[2018-12-05] MEDS: GABAPENTIN 300 MG CAP PO SCH ×3 (08:02→21:29)
[2018-12-05] MEDS: FAMOTIDINE 20 MG TAB PO SCH ×2 (08:02→21:29)
[2018-12-05] MEDS: HEPARIN SODIUM,PORCINE 5,000 UNIT/ML 1 ML VIAL SQ SCH ×2 (08:02→21:29)
[2018-12-05] MEDS: ATENOLOL 50 MG TAB PO SCH (08:02)
[2018-12-05] MEDS: ASPIRIN 81 MG PO SCH (08:02)
[2018-12-05] MEDS: FLUCONAZOLE 100 MG TAB PO SCH (09:27)
[2018-12-05 09:33] LABS: Blood Urea Nitrogen 11 mg/dL (7-17); Calcium 8.6 mg/dL (8.4-10.2); Chloride 99 mmol/L (98-107); Glucose 104 mg/dL (74-99); Potassium 4.3 mmol/L (3.5-5.1); Sodium 144 mmol/L (137-145)
[2018-12-05 09:52] LABS: Anion Gap 3 mmol/L; Carbon Dioxide 42 mmol/L (22-30)
[2018-12-05] MEDS: SODIUM CHLORIDE 0.9% 1,000 ML IV SCH (12:58)
--- NOTE | 2018-12-05 13:33 | P.PN ---
<Isamar Martinez M - Last Filed: 12/05/18 12:57> Subjective Progress Note Date: 12/05/18 Principal diagnosis: Dysphagia, aspiration, weight loss, unexplained left-sided weakness, chronic hypercapnic respiratory failure, gait dysfunction A 78-year-old female patient comes into the hospital because of worsening shortness of breath. Apparently this patient has been having issues with her voice, swallow addition to that the patient has been losing weight and she claims that she has lost about 50 pounds. She also has noted some weakness in her left side of the body for which she has seen Dr. Cheng and no final diagnoses been established. 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 This was seen back in 2017. No evidence of any dissection. No other abnormalities noted. The patient came in to the hospital after she aspirated on a piece of cereal. Chest x-ray reveals no significant pneumonia. BNP was nonelevated. Influenza screen was negative. The blood work shows some mild metabolic alkalosis. Creatinine is down to 0.32. Chest x-ray is not showing any acute pulmonary infiltrates or pneumonia. The patient is currently on IV Unasyn. On 12/05/2018 patient seen in follow-up on the surgical floor. She remains quite weak, her cough is very weak. Patient has been episodes of what is described as choking, and apnea periods where she is gasping for air, and not able to breathe. These episodes are not preceded by eating or drinking. In addition patient has been noted to be hypoxemic, she is satting 79% on room air. Lung sounds are extremely diminished, with poor air entry bilaterally. Patient has profound generalized weakness, more so in the right upper extremity. No unilateral facial weakness, voice quality is quite weak. Apparently patient was following with the neurologist from the [place] system for the symptoms of generalized weakness, dysphagia, dysphonia, progressive weight loss. She has an upcoming appointment on December 10. We will try to obtain records from the [facility]. On today's evaluation patient is awake and alert, however extremely weak. Today's blood work showed CO2 of 42, suggesting chronic hypercapnic respiratory failure. Underlying neurodegenerative disorder is suspected as a primary cause of patient's multiple symptoms discussed above, including the hypercapnic respiratory failure and hypoxemia. She is afebrile, hemodynamically she is stable. Speech was asked to evaluate her. We ordered a CT scan of the chest with contrast, an MRI of the brain and both are pending at this time. No fever or chills. No significant chest congestion. We discussed the patient's case with the attending physician, and there will be a family discussion with the attending physician regarding patient's condition, prognosis, and the possibility of transferring the patient to a tertiary Medical Center, for neurologic evaluation. Objective - Vital Signs Vital signs: Vital Signs Temp 97.9 F 12/05/18 11:40 Pulse 63 12/05/18 11:40 Resp 20 12/05/18 11:40 BP 116/69 12/05/18 11:40 Pulse Ox 93 L 12/05/18 11:45 Intake & Output 12/04/18 12/05/18 12/05/18 18:59 06:59 18:59 Intake Total 100 705 Balance 100 705 Intake: Intake, IV Titration 100 240 Amount Ampicillin-Sulbactam 3 gm 100 In Sodium Chloride 0.9% 100 ml @ 200 mls/hr IVPB Q8HR [facility] Rx#:[id number] Sodium Chloride 0.9% 1, 240 000 ml @ 20 mls/hr IV . Q24H [facility] Rx#:[id number] Oral 465 Other: Voiding Method Toilet Bedside Commode Bedside Commode # Voids 1 2 - Exam GENERAL EXAM: Alert, frail looking 78-year-old white female patient on 2 L per nasal cannula, looking quite weak, in no apparent distress. HEAD: Normocephalic/atraumatic. EYES: Normal reaction of pupils, equal size. Conjunctiva pink, sclera white. NOSE: Clear with pink turbinates. THROAT: No erythema or exudates. NECK: No masses, no JVD, no thyroid enlargement, no adenopathy. CHEST: No chest wall deformity. Symmetrical expansion. LUNGS: Equal air entry diminished breath sounds bilaterally CVS: Regular rate and rhythm, normal S1 and S2, no gallops, no murmurs, no rubs ABDOMEN: Soft, nontender. No hepatosplenomegaly, normal bowel sounds, no guarding or rigidity. EXTREMITIES: No clubbing, no edema, no cyanosis, 2+ pulses and upper and lower extremities. MUSCULOSKELETAL: Muscle strength and tone normal. SPINE: No scoliosis or deformity SKIN: No rashes CENTRAL NERVOUS SYSTEM: Alert and oriented -3. No focal deficits, tone is normal in all 4 extremities. PSYCHIATRIC: Alert and oriented -3. Appropriate affect. Intact judgment and insight. - Labs CBC & Chem 7: 12/03/18 07:18 12/05/18 08:37 Labs: Abnormal Lab Results - Last 24 Hours (Table) 12/05/18 Range/Units 08:37 Carbon Dioxide 42 H* (22-30) mmol/L Creatinine 0.43 L (0.52-1.04) mg/dL Glucose 104 H (74-99) mg/dL Assessment and Plan Plan: Assessment: 1 dysphagia, aspiration in addition to weight loss. Consider chronic aspiration. CAT scan of the chest from April 2018 was within normal limits. The mediastinum is widened the chest x-ray and this is related to her thoracic or tinnitus ectatic. 2 chronic hypercapnic respiratory failure with compensatory metabolic alkalosis 3 left-sided weakness, unexplained, rule out a neurodegenerative disorder 4 dysphonia 5 hypertension 6 osteoarthritis 7 chronic gait dysfunction uses a walker Plan: CT of the chest is pending, MRI of the brain is pending, and underlying neurodegenerative disorder is strongly suspected. Case was discussed with attending physician, will have a discussion with the patient and her family. Obtain records from [facility] patient follows with a neurologist there, and has an upcoming appointment with him on December 10. Patient may need to be transferred to a tertiary Medical Center for neurologic evaluation, will depend on the results of this discussion with the family. For now continue medical treatment, aspiration precautions I performed a history & physical examination of the patient and discussed their management with my nurse practitioner, Isamar Martinez. I reviewed the nurse practitioner's note and agree with the documented findings and plan of care. Lung sounds are positive for extremely diminished breath sounds bilaterally. The findings and the impression was discussed with the patient. I attest to the documentation by the nurse practitioner. Time with Patient: Less than 30 <Nick Huber - Last Filed: 12/05/18 18:34> Objective - Vital Signs Vital signs: Vital Signs Temp 97.9 F 12/05/18 11:40 Pulse 70 12/05/18 18:15 Resp 12 12/05/18 18:15 BP 114/67 12/05/18 18:15 Pulse Ox 95 12/05/18 18:15 Intake & Output 12/04/18 12/05/18 12/05/18 18:59 06:59 18:59 Intake Total 100 705 Output Total 250 Balance 100 705 -250 Intake: Intake, IV Titration 100 240 Amount Ampicillin-Sulbactam 3 gm 100 In Sodium Chloride 0.9% 100 ml @ 200 mls/hr IVPB Q8HR [facility] Rx#:[id number] Sodium Chloride 0.9% 1, 240 000 ml @ 20 mls/hr IV . Q24H [facility] Rx#:[id number] Oral 465 Output: Urine 250 Other: Voiding Method Toilet Bedside Commode Bedside Commode # Voids 1 2 - Labs CBC & Chem 7: 12/03/18 07:18 12/05/18 08:37 Labs: Abnormal Lab Results - Last 24 Hours (Table) 12/05/18 12/05/18 12/05/18 Range/Units 08:37 14:40 18:08 ABG pH 7.29 L (7.35-7.45) ABG pCO2 92 H* (35-45) mmHg ABG HCO3 43 H* (21-25) mmol/L ABG O2 Saturation 97.7 H (94-97) % Carbon Dioxide 42 H* (22-30) mmol/L Creatinine 0.43 L (0.52-1.04) mg/dL Glucose 104 H (74-99) mg/dL POC Glucose (mg/dL) 71 L (75-99) mg/dL Assessment and Plan Plan: I attest to the above-mentioned information. The patient will need a swallow evaluation. The patient will need an ENT evaluation to assess her vocal cords. 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 We are suspecting an ongoing neurodegenerative disorder in the form of multisystem atrophy type of disease. We'll support this patient with BiPAP. We'll talk to the hospitalist in constellation of transferring this patient to a tertiary care center for further evaluation especially with her ongoing neurologic impairments.
[2018-12-05 14:46] LABS: ABG Base Excess 12.4 mmol/L; ABG Oxygen Saturation 97.7 % (94-97); ABG PH 7.29 (7.35-7.45); ABG PO2 93 mmHg (83-108)
[2018-12-05 14:47] LABS: ABG HCO3 43 mmol/L (21-25); ABG PCO2 92 mmHg (35-45)
[2018-12-05 18:11] LABS: Glucose,Whole Blood 71 mg/dL (75-99)
[2018-12-05 18:47] LABS: Appearance,Urine Clear (Clear); Bilirubin,Urine Negative (Negative); Blood,Urine Negative (Negative); Color,Urine Yellow; Glucose,Urine (UA) Negative (Negative); Ketones,Urine 1+ (Negative); Leukocyte Esterase,Urine Negative (Negative); Nitrite,Urine Negative (Negative); PH, Urine 5.5 (5.0-8.0); Protein,Urine Trace (Negative); Specific Gravity,Urine 1.025 (1.001-1.035); Urobilinogen,Urine <2.0 mg/dL (<2.0)
--- NOTE | 2018-12-05 22:07 | PN ---
PROGRESS NOTE DATE OF SERVICE: 12/05/2018. PRESENTING COMPLAINT: Tired. INTERVAL HISTORY: The patient presented with aspiration pneumonia. Also seems to have neurodegenerative disorder going on for a few months. Dr. Huber called me this afternoon. The patient had desaturated. He had ordered BiPAP and also a CT scan of the chest. His LITERARY AGENT Isamar called me. The patient may be better served at a tertiary center as we do not have Neurology here and I agreed with the same. BiPAP was ordered. The patient was going to be moved to the ICU. REVIEW OF SYSTEMS: Done for constitutional, cardiovascular, GI, pulmonary; relevant findings as above. CURRENT MEDICATIONS: Reviewed that include IV Unasyn. PHYSICAL EXAMINATION: VITAL SIGNS: Temperature 97.9,pulse 63, respiratory rate 20, blood pressure 114/69, pulse ox 93% on room air. GENERAL APPEARANCE: Lying in bed with nasal cannula, a bit anxious. EYES: Pupils equal. Conjunctivae normal. NECK: JVD not raised. Mass not palpable. RESPIRATORY: Effort increased. LUNGS: Decreased breath sounds. CARDIOVASCULAR: First and second sounds normal. No edema. ABDOMEN: Soft, nontender. Liver and spleen not palpable. PSYCHIATRY: Alert and oriented x3. Mood is slightly anxious. NEUROLOGICAL: Unchanged from yesterday. INVESTIGATIONS: Blood gas showed a pH of 7.29, pCO2 of 92, bicarb 43, potassium 4.3, BUN 11, creatinine 0.43. ASSESSMENT: 1. Bilateral aspiration pneumonia, recurrent. 2. Neurodegenerative disorder type unknown. The patient will need further workup. 3. Hyperlipidemia. 4. Essential hypertension. 5. Acute hypoxic respiratory failure, could be from aspiration pneumonia. 6. Acute hypoxic and hypercapnic respiratory failure. PLAN: We contacted [facility]. I spoke to the receiving neuro [employer] controlled atmospheric furnace, Dr. Ramirez and he accepted the patient. Later I was informed that [facility], the patient is out of network so we made a phone call through to Kaela Liriano. Later Dr. Huber called me that the patient had just informed him that the patient had some workup done by a neurologist out of [place]. We will get in touch with the same and get some records from there. The patient in the meantime has stabilized and using BiPAP. Total time spent today was about 50 minutes with over 30 to 35 minutes of discussion. The patient is currently in the ICU. MMODL / IJN: [id number] /
--- NOTE | 2018-12-05 22:30 | CT ---
EXAMINATION TYPE: CT chest w con DATE OF EXAM: 12/05/2018 COMPARISON: None HISTORY: Aspiration, wide mediastinum, dyspnea CT DLP: 226.10 mGycm Automated exposure control for dose reduction was used. IV CONTRAST: 100 mL Isovue 300. FINDINGS: AIRWAYS: Unremarkable. LUNGS: Partial bibasilar airlessness, greater on the right. Atelectasis versus bronchopneumonia can b e clinically delineated. PLEURAL SPACES: Minimal bilateral pleural effusions. MEDIASTINUM: The aorta is tortuous, but no acute findings. No acute pulmonary arterial findings. Ther e is mild cardiomegaly, but no pericardial effusion. No adenopathy. SKELETAL STRUCTURES: Unremarkable. EXTRATHORACIC SOFT TISSUES: Unremarkable. IMPRESSION: Partial bibasilar airlessness, greater on the right with a bilateral pleural effusions.
[2018-12-06 05:04] LABS: Magnesium 2.3 mg/dL (1.6-2.3); Phosphorus 3.3 mg/dL (2.5-4.5)
[2018-12-06] MEDS: ACETAMINOPHEN TAB 325 MG TAB PO PRN (05:40)
[2018-12-06 06:53] LABS: Basophils % (A) 1 %; Eosinophils % (A) 0 %; HCT 49.5 % (34.0-46.0); HGB 15.2 gm/dL (11.4-16.0); Hypochromasia Moderate; Lymphocytes % (A) 14 %; MCH 30.4 pg (25.0-35.0); MCHC 30.8 g/dL (31.0-37.0); Mean Platelet Volume 6.8; Monocytes # (A) 0.4 k/uL (0-1.0); Monocytes % (A) 5 %; Neutrophils # (A) 5.8 k/uL (1.3-7.7); Neutrophils % (A) 79 %; Platelet Count 163 k/uL (150-450); RBC 5.01 m/uL (3.80-5.40); RDW 13.5 % (11.5-15.5); WBC 7.4 k/uL (3.8-10.6)
[2018-12-06 07:12] LABS: MCV 98.7 fL (80.0-100.0)
[2018-12-06 07:57] LABS: Anion Gap 5 mmol/L; Blood Urea Nitrogen 10 mg/dL (7-17); Calcium 8.7 mg/dL (8.4-10.2); Chloride 99 mmol/L (98-107); Glucose 87 mg/dL (74-99); Sodium 144 mmol/L (137-145)
[2018-12-06 08:04] LABS: Carbon Dioxide 39 mmol/L (22-30)
--- NOTE | 2018-12-06 09:15 | XR ---
EXAMINATION TYPE: XR chest 1V DATE OF EXAM: 12/06/2018 COMPARISON: Prior chest x-ray 12/03/[address] 12/05/2018 HISTORY: Abnormal chest x-ray TECHNIQUE: Single frontal view of the chest is obtained. FINDINGS: Patchy basilar density is present, the patient is rotated and exam is expiratory. Heart si ze is stable, enlarged. No pneumothorax. There are cardiac leads. Arthropathy noted within the should ers. IMPRESSION: Basilar atelectasis, small associated effusions. Cardiomegaly.
[2018-12-06 09:37] LABS: ABG Base Excess 21.2 mmol/L; ABG Oxygen Saturation 97.5 % (94-97); ABG PH 7.34 (7.35-7.45); ABG PO2 80 mmHg (83-108); ABG TCO2 50 mmol/L (19-24)
[2018-12-06 09:37] LABS: Glucose,Whole Blood 136 mg/dL (75-99)
[2018-12-06 09:42] LABS: ABG HCO3 47 mmol/L (21-25); ABG PCO2 87 mmHg (35-45)
[2018-12-06] MEDS: ATENOLOL 50 MG TAB PO SCH (10:34)
[2018-12-06] MEDS: FLUCONAZOLE 100 MG TAB PO SCH (10:34)
[2018-12-06] MEDS: ASPIRIN 81 MG PO SCH (10:34)
[2018-12-06] MEDS: SODIUM CHLORIDE 0.9% 1,000 ML IV SCH ×3 (10:35→23:59)
[2018-12-06] MEDS: HEPARIN SODIUM,PORCINE 5,000 UNIT/ML 1 ML VIAL SQ SCH ×2 (10:35→21:10)
[2018-12-06] MEDS: FAMOTIDINE 20 MG TAB PO SCH ×2 (10:35→20:43)
[2018-12-06] MEDS: GABAPENTIN 300 MG CAP PO SCH ×3 (10:35→20:40)
[2018-12-06] MEDS: AMPICILLIN-SULBACTAM 3 GM in SODIUM CHLORIDE 0.9% 100 ML IVPB SCH ×3 (11:20→23:59)
--- NOTE | 2018-12-06 15:50 | P.PCN ---
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 Procedure(s) Performed: Flexible nasopharyngeal laryngoscopy Anesthesia: none Surgeon: Tod Luevano Estimated Blood Loss (ml): 0 Pathology: none sent Condition: stable Disposition: PACU Indications for Procedure: This patient is experiencing hoarseness and dysphagia. The patient is a poor historian and tells me that this started just a few weeks ago but she is lost weight over 6 months and her dysphagia has been progressive. Operative Findings: Patient has xerostomia along with a very weak swallow effort. Vocal cords shows some secretions but no evidence of vocal cord paralysis Description of Procedure: This patient was placed in a semi-recombinant position. An EF type GP nasopharyngoscope was inserted into the patient's right nares and was followed the floor the nose into the nasopharynx and oropharynx and hypopharynx. Examination reveals dryness to the mouth and throat. Patient has some scant postnasal drainage. Vocal cords shows some mucus pooling but no evidence of vocal cord paralysis or other issues. Swallowing effort is poor.
--- NOTE | 2018-12-06 17:32 | P.PN ---
Subjective Progress Note Date: 12/06/18 A 78-year-old female patient comes into the hospital because of worsening shortness of breath. Apparently this patient has been having issues with her voice, swallow addition to that the patient has been losing weight and she claims that she has lost about 50 pounds. She also has noted some weakness in her left side of the body for which she has seen Dr. Cheng and no final diagnoses been established. 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 This was seen back in 2017. No evidence of any dissection. No other abnormalities noted. The patient came in to the hospital after she aspirated on a piece of cereal. Chest x-ray reveals no significant pneumonia. BNP was nonelevated. Influenza screen was negative. The blood work shows some mild metabolic alkalosis. Creatinine is down to 0.32. Chest x-ray is not showing any acute pulmonary infiltrates or pneumonia. The patient is currently on IV Unasyn. On 12/05/2018 patient seen in follow-up on the surgical floor. She remains quite weak, her cough is very weak. Patient has been episodes of what is described as choking, and apnea periods where she is gasping for air, and not able to breathe. These episodes are not preceded by eating or drinking. In addition patient has been noted to be hypoxemic, she is satting 79% on room air. Lung sounds are extremely diminished, with poor air entry bilaterally. Patient has profound generalized weakness, more so in the right upper extremity. No unilateral facial weakness, voice quality is quite weak. Apparently patient was following with the neurologist from the [facility] for the symptoms of generalized weakness, dysphagia, dysphonia, progressive weight loss. She has an upcoming appointment on December 10. We will try to obtain records from the [facility] system. On today's evaluation patient is awake and alert, however extremely weak. Today's blood work showed CO2 of 42, suggesting chronic hypercapnic respiratory failure. Underlying neurodegenerative disorder is suspected as a primary cause of patient's multiple symptoms discussed above, including the hypercapnic respiratory failure and hypoxemia. She is afebrile, hemodynamically she is stable. Speech was asked to evaluate her. We ordered a CT scan of the chest with contrast, an MRI of the brain and both are pending at this time. No fever or chills. No significant chest congestion. We discussed the patient's case with the attending physician, and there will be a family discussion with the attending physician regarding patient's condition, prognosis, and the possibility of transferring the patient to a tertiary Medical Center, for neurologic evaluation. On 12/06/2018 I'm seeing this patient for a follow-up. Noted the patient got transferred to the intensive care unit yesterday because of hypercapnic respiratory failure. I had a discussion with the patient's neurologist, Dr. Boothe off [facility]. He updated me on the workup that has been done on this patient. He has a very high suspicion that the patient has an underlying amyotrophic lateral sclerosis. This is obviously a progressive motor disease which makes by the patient's underlying respiratory insufficiency. Noted the patient developed an acute on top of chronic hypercapnic respiratory failure yesterday. She got to the intensive care unit where she was placed briefly on BiPAP. She improved. Subsequently she did not tolerate the BiPAP and the BiPAP was discontinued. A repeat blood gases was done this morning while the patient on 3 L of oxygen by nasal cannula showed a pH of 7.34 with a pCO2 of 87 and pO2 of 80. Noted the computed tomography scan of the chest was done yesterday that showed no evidence of any pulmonary embolism and it showed some atelectatic changes small effusion the lung bases bilaterally.. The patient had an ENT evaluation done today by Dr. King. The patient showed no evidence of any vocal cord paralysis. There was clear findings of dysphagia which is thought to be related to her neurologic disease. The patient is currently nothing by mouth. She is having dysphagia. She is unable to swallow. Her cough and mechanism is weak. She is able to clear respiratory secretions. We are going to have a family meeting today at around 5 PM to the side on goals of treatment. We have made recommendations to transfer this patient to [facility] if the patient and her family is willing to go there. While, she remains on IV Unasyn for aspiration pneumonia coverage. She remains on ventilator nebulized treatment 4 times a day when necessary. She was started on Diflucan for some limited oropharyngeal candidiasis. She is on IV fluids with normal state rate of 20 mL an hour. She is awake. His speech is forced and she speaks with a soft voice. Swallow is impaired. No signs of any acute respiratory distress at this point in time. A bedside muscle force evaluation was done and the patient's sniff was -16 and the vital Was around 250. Objective - Vital Signs Vital signs: Vital Signs Temp 97.4 F L 12/06/18 16:00 Pulse 67 12/06/18 16:00 Resp 29 H 12/06/18 16:00 BP 129/70 12/06/18 16:00 Pulse Ox 98 12/06/18 16:00 Intake & Output 12/05/18 12/06/18 12/06/18 18:59 06:59 18:59 Intake Total 320 380 Output Total 250 585 390 Balance -250 -265 -10 Weight 65.6 kg Intake: IV 320 180 Ampicillin-Sulbactam 3 gm 100 In Sodium Chloride 0.9% 100 ml @ 200 mls/hr IVPB Q8HR PANKAJ Rx#:[id number] Sodium Chloride 0.9% 1, 220 180 000 ml @ 20 mls/hr IV . Q24H PANKAJ Rx#:[id number] Intake, IV Titration 200 Amount Ampicillin-Sulbactam 3 gm 200 In Sodium Chloride 0.9% 100 ml @ 200 mls/hr IVPB Q8HR PANKAJ Rx#:[id number] Output: Urine 250 585 390 Other: Voiding Method Bedpan Indwelling Catheter Indwelling Catheter - Exam GENERAL EXAM: Alert, frail looking 78-year-old white female patient on 3 L per nasal cannula, looking quite weak, in no apparent distress. HEAD: Normocephalic/atraumatic. EYES: Normal reaction of pupils, equal size. Conjunctiva pink, sclera white. NOSE: Clear with pink turbinates. THROAT: No erythema or exudates. NECK: No masses, no JVD, no thyroid enlargement, no adenopathy. CHEST: No chest wall deformity. Symmetrical expansion. LUNGS: Equal air entry diminished breath sounds bilaterally CVS: Regular rate and rhythm, normal S1 and S2, no gallops, no murmurs, no rubs ABDOMEN: Soft, nontender. No hepatosplenomegaly, normal bowel sounds, no guarding or rigidity. EXTREMITIES: No clubbing, no edema, no cyanosis, 2+ pulses and upper and lower extremities. MUSCULOSKELETAL: Muscle strength and tone normal. SPINE: No scoliosis or deformity SKIN: No rashes CENTRAL NERVOUS SYSTEM: A motor weakness in the upper and lower extremities more so in the right upper and right lower extremity. Reflexes are absent in the right lower extremity and the left lower extremity. +1 reflexes in the upper extremity. No fasciculation. No significant rigidity at this point in time. No clonus. No Babinski. Awake and alert. Pupils are equal and reactive to light. Tongue in the midline. No facial asymmetry. PSYCHIATRIC: Alert and oriented -3. Appropriate affect. Intact judgment and insight. - Labs CBC & Chem 7: 12/06/18 04:24 12/06/18 04:24 Labs: Abnormal Lab Results - Last 24 Hours (Table) 12/05/18 12/05/18 12/06/18 Range/Units 18:08 18:20 04:24 Hct 49.5 H (34.0-46.0) % MCHC 30.8 L (31.0-37.0) g/dL ABG pH (7.35-7.45) ABG pCO2 (35-45) mmHg ABG pO2 (83-108) mmHg ABG HCO3 (21-25) mmol/L ABG Total CO2 (19-24) mmol/L ABG O2 Saturation (94-97) % Carbon Dioxide (22-30) mmol/L Creatinine (0.52-1.04) mg/dL POC Glucose (mg/dL) 71 L (75-99) mg/dL Urine Protein Trace H (Negative) Urine Ketones 1+ H (Negative) 12/06/18 12/06/18 12/06/18 Range/Units 04:24 09:28 09:34 Hct (34.0-46.0) % MCHC (31.0-37.0) g/dL ABG pH 7.34 L (7.35-7.45) ABG pCO2 87 H* (35-45) mmHg ABG pO2 80 L (83-108) mmHg ABG HCO3 47 H* (21-25) mmol/L ABG Total CO2 50 H (19-24) mmol/L ABG O2 Saturation 97.5 H (94-97) % Carbon Dioxide 39 H (22-30) mmol/L Creatinine 0.38 L (0.52-1.04) mg/dL POC Glucose (mg/dL) 136 H (75-99) mg/dL Urine Protein (Negative) Urine Ketones (Negative) Assessment and Plan Plan: Assessment 1 acute on chronic hypercapnic respiratory failure, mainly secondary to underlying neuromuscular weakness, most likely cause of this problem is amyotrophic lateral sclerosis/ALS. Discussed the case with the neurologist at [facility]. The testing that has been done over there as indicated the possibility of ALS. The patient was briefly placed on a BiPAP and currently she is on 10 L of oxygen nasal cannula. CAT scan of the chest showing atelectatic changes small effusion the lung bases bilaterally. 2 dysphagia with significant weight loss with episodes of aspiration. We are going to consider PEG tube insertion. 3 neuromuscular weakness with significant respiratory insufficiency. The patient's nephew is at -16 and the vital Is at 250 indicating severe respiratory compromise 4 dysphonia 5 hypertension 6 ataxia with the gait dysfunction secondary to above Plan We are looking for a family meeting with this patient's family this evening. We are going to discuss the options. Obviously we don't have any neurology service in our hospital. We may advise the patient to go to [facility] for neurology services. We may offer a PEG tube for nutritional support. The patient has significant vascular insufficiency. She may need a noninvasive positive pressure ventilator at a later stage to assist her with her breathing and chronic hypercapnic respiratory failure. Prognosis remains very poor. This will be discussed also with the family. ENT evaluation was done. CAT scan of the chest was done. MRI of the brain was not performed as the patient is unable to withstand this type of procedure. Condition is critical. Prognosis poor.
[2018-12-06] MEDS ORDERED: LORazepam 0.5 MG TAB PO PRN (18:56)
--- NOTE | 2018-12-06 20:05 | PN ---
PROGRESS NOTE DATE OF SERVICE: 12/06/2018. PRESENTING COMPLAINT: Tired. INTERVAL HISTORY: Patient presented with aspiration pneumonia. Dr. Huber called me this morning. He had spoken to patient's neurologist, Dr. Marino out of [place]. The patient's workup was being done. He wanted an outpatient lumbar puncture. The suspicion was for amyotrophic lateral sclerosis/motor neuron disease. The patient has been in the ICU, but this morning, oxygen saturation did came down from 10 L to 3 L. The patient has been made n.p.o. I did ask for a family meeting later in the evening. The patient is getting IV fluids. REVIEW OF SYSTEMS: Done for constitutional, cardiovascular, GI, pulmonary; relevant findings as above. CURRENT MEDICATIONS: Reviewed that include IV Unasyn and IV fluids. PHYSICAL EXAMINATION: VITAL SIGNS: Temperature 97.4, pulse 57, respirations 29, blood pressure 129/70, pulse ox 98% on 2 L. GENERAL APPEARANCE: Lying in bed, tired-appearing. EYES: Pupils equal. Conjunctivae normal. NECK: JVD unable to assess. Mass not palpable. RESPIRATORY: Effort increased. LUNGS: Decreased breath sounds. CARDIOVASCULAR: 1st and 2nd sounds normal. No edema. ABDOMEN: Soft, nontender. Liver and spleen not palpable. PSYCHIATRY: Awake, answering questions. NEUROLOGICAL: Arms and legs are weak. Speech is slow. INVESTIGATIONS: Blood gas showed a pH of 7.34, pCO2 of 87, PO2 of 80. ASSESSMENT: 1. Bilateral aspiration pneumonia, recurrent. 2. Neuro degenerative disorder, progressive, suspicion for amyotrophic lateral sclerosis including bulbar involvement. 3. Hyperlipidemia. 4. Essential hypertension. 5. Acute hypoxic and hypercapnic respiratory failure. 6. Progressive medical debility. Patient's oxygen requirement has come down to 3 L later this evening. IV antibiotics to continue. The patient has been made n.p.o. Discussed with Dr. Huber. I am going to go ahead and have a family meeting. ADVANCED CARE PLANNING: I had a meeting with the patient, her , her son, daughter and also her son and his were on the phone. I discussed with the patient, the progressive nature of what is possible amyotrophic lateral sclerosis and disease process is rather progressive, though we do not have a confirmed diagnosis. Also patient is not able to feed anymore because of her weakness of the throat muscles and patient will require a PEG tube. The patient has decided to proceed with a PEG tube. Also patient wanted at this point to be a FULL CODE. The patient's son expressed that the patient previously did not want any artificial support, but at this point, patient wants to be a FULL CODE. Consultation is being done therefore for Dr. Yang with whom I spoke to the phone about a PEG tube feeding. The patient will want to get transferred out to [place] to see if anything further can be done. I did explain that being the diagnosis and how the patient is looking, the prognosis is at this point not too good. Total time spent today on this aspect of the care, discussion was about [address] Huber from Pulmonary. The patient's NIF is 16 and patient's vital capacity is 250. I spoke to Dr. Yang for a PEG tube tomorrow. I also spoke to the nurse about contacting [place] for a general medical floor with telemetry with a neurological thing and patient is stable to be moved out of the ICU. CODE STATUS: FULL CODE. MMODL / IJN: [id number] /
[2018-12-06] MEDS: FAMOTIDINE 20 MG/2 ML VIAL IV SCH (21:10)
[2018-12-07 06:22] LABS: Basophils % (A) 1 %; Eosinophils % (A) 0 %; HCT 48.1 % (34.0-46.0); HGB 14.8 gm/dL (11.4-16.0); Hypochromasia Moderate; Lymphocytes # (A) 1.1 k/uL (1.0-4.8); Lymphocytes % (A) 16 %; MCH 30.3 pg (25.0-35.0); MCHC 30.8 g/dL (31.0-37.0); MCV 98.6 fL (80.0-100.0); Mean Platelet Volume 6.5; Monocytes # (A) 0.3 k/uL (0-1.0); Monocytes % (A) 5 %; Neutrophils # (A) 5.1 k/uL (1.3-7.7); Neutrophils % (A) 77 %; Platelet Count 171 k/uL (150-450); RBC 4.88 m/uL (3.80-5.40); RDW 13.2 % (11.5-15.5); WBC 6.7 k/uL (3.8-10.6)
[2018-12-07 06:44] LABS: Anion Gap 4 mmol/L; Blood Urea Nitrogen 9 mg/dL (7-17); Calcium 8.5 mg/dL (8.4-10.2); Carbon Dioxide 40 mmol/L (22-30); Chloride 97 mmol/L (98-107); Glucose 69 mg/dL (74-99); Magnesium 2.1 mg/dL (1.6-2.3); Phosphorus 2.5 mg/dL (2.5-4.5); Sodium 141 mmol/L (137-145)
--- NOTE | 2018-12-07 09:19 | XR ---
EXAMINATION TYPE: XR chest 1V DATE OF EXAM: 12/07/2018 COMPARISON: 12/06/2018 HISTORY: Abnormal x-ray TECHNIQUE: Single frontal view of the chest is obtained. FINDINGS: Patient is rotated and there is diffuse osteopenia. Arthropathy of the shoulders. Bilatera l consolidation and pleural effusion noted. Mediastinum is prominent. Hypertrophic and degenerative c hanges of the spine. No pneumothorax. IMPRESSION: 1. Stable bilateral lower lobe infiltrate and small effusion.
[2018-12-07] MEDS: AMPICILLIN-SULBACTAM 3 GM in SODIUM CHLORIDE 0.9% 100 ML IVPB SCH (09:20)
[2018-12-07] MEDS: GABAPENTIN 300 MG CAP PO SCH (09:45)
[2018-12-07] MEDS: ASPIRIN 81 MG PO SCH (09:45)
[2018-12-07] MEDS: ATENOLOL 50 MG TAB PO SCH (09:45)
[2018-12-07] MEDS: FLUCONAZOLE 100 MG TAB PO SCH (09:45)
--- NOTE | 2018-12-07 09:50 | P.PN ---
Subjective Progress Note Date: 12/07/18 A 78-year-old female patient comes into the hospital because of worsening shortness of breath. Apparently this patient has been having issues with her voice, swallow addition to that the patient has been losing weight and she claims that she has lost about 50 pounds. She also has noted some weakness in her left side of the body for which she has seen Dr. Cheng and no final diagnoses been established. 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 This was seen back in 2017. No evidence of any dissection. No other abnormalities noted. The patient came in to the hospital after she aspirated on a piece of cereal. Chest x-ray reveals no significant pneumonia. BNP was nonelevated. Influenza screen was negative. The blood work shows some mild metabolic alkalosis. Creatinine is down to 0.32. Chest x-ray is not showing any acute pulmonary infiltrates or pneumonia. The patient is currently on IV Unasyn. On 12/05/2018 patient seen in follow-up on the surgical floor. She remains quite weak, her cough is very weak. Patient has been episodes of what is described as choking, and apnea periods where she is gasping for air, and not able to breathe. These episodes are not preceded by eating or drinking. In addition patient has been noted to be hypoxemic, she is satting 79% on room air. Lung sounds are extremely diminished, with poor air entry bilaterally. Patient has profound generalized weakness, more so in the right upper extremity. No unilateral facial weakness, voice quality is quite weak. Apparently patient was following with the neurologist from the [place] system for the symptoms of generalized weakness, dysphagia, dysphonia, progressive weight loss. She has an upcoming appointment on December 10. We will try to obtain records from the [place] system. On today's evaluation patient is awake and alert, however extremely weak. Today's blood work showed CO2 of 42, suggesting chronic hypercapnic respiratory failure. Underlying neurodegenerative disorder is suspected as a primary cause of patient's multiple symptoms discussed above, including the hypercapnic respiratory failure and hypoxemia. She is afebrile, hemodynamically she is stable. Speech was asked to evaluate her. We ordered a CT scan of the chest with contrast, an MRI of the brain and both are pending at this time. No fever or chills. No significant chest congestion. We discussed the patient's case with the attending physician, and there will be a family discussion with the attending physician regarding patient's condition, prognosis, and the possibility of transferring the patient to a tertiary Medical Center, for neurologic evaluation. On 12/06/2018 I'm seeing this patient for a follow-up. Noted the patient got transferred to the intensive care unit yesterday because of hypercapnic respiratory failure. I had a discussion with the patient's neurologist, Dr. Boothe off [facility]. He updated me on the workup that has been done on this patient. He has a very high suspicion that the patient has an underlying amyotrophic lateral sclerosis. This is obviously a progressive motor disease which makes by the patient's underlying respiratory insufficiency. Noted the patient developed an acute on top of chronic hypercapnic respiratory failure yesterday. She got to the intensive care unit where she was placed briefly on BiPAP. She improved. Subsequently she did not tolerate the BiPAP and the BiPAP was discontinued. A repeat blood gases was done this morning while the patient on 3 L of oxygen by nasal cannula showed a pH of 7.34 with a pCO2 of 87 and pO2 of 80. Noted the computed tomography scan of the chest was done yesterday that showed no evidence of any pulmonary embolism and it showed some atelectatic changes small effusion the lung bases bilaterally.. The patient had an ENT evaluation done today by Dr. King. The patient showed no evidence of any vocal cord paralysis. There was clear findings of dysphagia which is thought to be related to her neurologic disease. The patient is currently nothing by mouth. She is having dysphagia. She is unable to swallow. Her cough and mechanism is weak. She is able to clear respiratory secretions. We are going to have a family meeting today at around 5 PM to the side on goals of treatment. We have made recommendations to transfer this patient to [facility] if the patient and her family is willing to go there. While, she remains on IV Unasyn for aspiration pneumonia coverage. She remains on ventilator nebulized treatment 4 times a day when necessary. She was started on Diflucan for some limited oropharyngeal candidiasis. She is on IV fluids with normal state rate of 20 mL an hour. She is awake. His speech is forced and she speaks with a soft voice. Swallow is impaired. No signs of any acute respiratory distress at this point in time. A bedside muscle force evaluation was done and the patient's sniff was -16 and the vital Was around 250. On today's evaluation of 12/07/2018, the patient is essentially the same. She is profoundly weak. Her pulmonary status is borderline. She has no vital capacity and low and very weak muscle forces consistent with her underlying motor neuron disease. 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 The patient had dysphagia. Her speech is also labored. She is nothing by mouth. We are working to move this patient to [facility] where she can be varied by neurology services. The patient was briefly placed again on BiPAP yesterday however she became quite anxious and in distress and she end up quitting the treatment. Currently is on oxygen by nasal cannula. She remains nothing by mouth. He is on 3 L of oxygen nasal cannula. The recent blood gases from yesterday showed a pH of 7.34 with a pCO2 of 87 pO2 of 80. White cell count from today is at 6.7. He was 14.8. Rest blood work and electrodes are all within normal limits. Creatinine is down to 0.29, indicating low muscle mass. We have consulted GI regarding a PEG tube insertion. We'll talk to anesthesia regarding her ability to undergo this procedure. We're also working on transferring this patient to [facility] for the above-mentioned reasons. Objective - Vital Signs Vital signs: Vital Signs Temp 98.3 F 12/07/18 04:00 Pulse 76 12/07/18 07:00 Resp 24 12/07/18 07:00 BP 143/74 12/07/18 07:00 Pulse Ox 94 L 12/07/18 07:00 Intake & Output 12/06/18 12/07/18 12/07/18 18:59 06:59 18:59 Intake Total 530 1000 75 Output Total 460 955 30 Balance 70 45 45 Weight 70.4 kg Intake: IV 180 925 75 Ampicillin-Sulbactam 3 gm 100 In Sodium Chloride 0.9% 100 ml @ 200 mls/hr IVPB Q8HR [facility] Rx#:[id number] Sodium Chloride 0.9% 1, 180 000 ml @ 20 mls/hr IV . Q24H [facility] Rx#:[id number] Sodium Chloride 0.9% 1, 825 75 000 ml @ 75 mls/hr IV . [id number] [facility] Rx#:[id number] Intake, IV Titration 350 75 Amount Ampicillin-Sulbactam 3 gm 200 In Sodium Chloride 0.9% 100 ml @ 200 mls/hr IVPB Q8HR [facility] Rx#:[id number] Sodium Chloride 0.9% 1, 150 75 000 ml @ 75 mls/hr IV . [id number] [facility] Rx#:[id number] Output: Urine 460 955 30 Other: Voiding Method Indwelling Catheter Indwelling Catheter - Exam GENERAL EXAM: Alert, frail looking 78-year-old white female patient on 3 L per nasal cannula, looking quite weak, in no apparent distress. HEAD: Normocephalic/atraumatic. EYES: Normal reaction of pupils, equal size. Conjunctiva pink, sclera white. NOSE: Clear with pink turbinates. THROAT: No erythema or exudates. NECK: No masses, no JVD, no thyroid enlargement, no adenopathy. CHEST: No chest wall deformity. Symmetrical expansion. LUNGS: Equal air entry diminished breath sounds bilaterally CVS: Regular rate and rhythm, normal S1 and S2, no gallops, no murmurs, no rubs ABDOMEN: Soft, nontender. No hepatosplenomegaly, normal bowel sounds, no guarding or rigidity. EXTREMITIES: No clubbing, no edema, no cyanosis, 2+ pulses and upper and lower extremities. MUSCULOSKELETAL: Muscle strength and tone normal. SPINE: No scoliosis or deformity SKIN: No rashes CENTRAL NERVOUS SYSTEM: A motor weakness in the upper and lower extremities more so in the right upper and right lower extremity. Reflexes are absent in the right lower extremity and the left lower extremity. +1 reflexes in the upper extremity. No fasciculation. No significant rigidity at this point in time. No clonus. No Babinski. Awake and alert. Pupils are equal and reactive to light. Tongue in the midline. No facial asymmetry. PSYCHIATRIC: Alert and oriented -3. Appropriate affect. Intact judgment and insight. - Labs CBC & Chem 7: 12/07/18 05:40 12/07/18 05:40 Labs: Abnormal Lab Results - Last 24 Hours (Table) 12/07/18 12/07/18 Range/Units 05:40 05:40 Hct 48.1 H (34.0-46.0) % MCHC 30.8 L (31.0-37.0) g/dL Chloride 97 L (98-107) mmol/L Carbon Dioxide 40 H (22-30) mmol/L Creatinine 0.29 L (0.52-1.04) mg/dL Glucose 69 L (74-99) mg/dL Assessment and Plan Plan: Assessment 1 acute on chronic hypercapnic respiratory failure, mainly secondary to underlying neuromuscular weakness/ motor neuron disease, most likely cause of this problem is amyotrophic lateral sclerosis/ALS. Discussed the case with the neurologist at [facility]. The testing that has been done over there as indicated the possibility of ALS. The patient was briefly placed on a BiPAP and currently she is on 10 L of oxygen nasal cannula. CAT scan of the chest showing atelectatic changes small effusion the lung bases bilaterally. The patient has hypercapnic respiratory failure acute on chronic. She is unable to tolerate BiPAP. Currently symptoms these of oxygen nasal cannula. Muscle forces are weak. Vital Is around 250. NIF. of -16. 2 dysphagia with significant weight loss with episodes of aspiration. We are going to consider PEG tube insertion. 3 neuromuscular weakness with significant respiratory insufficiency. The patient's nephew is at -16 and the vital Is at 250 indicating severe respiratory compromise 4 dysphonia 5 hypertension 6 ataxia with the gait dysfunction secondary to above Plan Family discussion was done yesterday. The patient wanted to be a full code. She wants to proceed with intubation mechanical ventilation if needed. She is still being considered for transfer to [facility] and the chest is intact place once we're admitting physician and admitting neurologist. Meanwhile, we're considering a PEG tube insertion, Afrin a few things of this can be done without any major pulmonary complications. I think she runs an increased risk of developing respiratory failure/acute on top of chronic hypercapnic respiratory failure during this type procedures. We'll continue to follow very closely. Continue supportive care. Continue IV Unasyn. Continue bronchodilators. Continue gentle hydration with normal state rate of 75 mL an hour. Heparin subcu for DVT prophylaxis.. Prognosis extremely poor. We'll follow.
[2018-12-07] MEDS: SODIUM CHLORIDE 0.9% 1,000 ML IV SCH (10:04)
[2018-12-07] MEDS: HEPARIN SODIUM,PORCINE 5,000 UNIT/ML 1 ML VIAL SQ SCH (10:21)
[2018-12-07] MEDS: FAMOTIDINE 20 MG/2 ML VIAL IV SCH (10:21)
--- NOTE | 2018-12-07 11:58 | P.CONS ---
History of Present Illness - Reason for Consult Consult date: 12/07/18 Unable to meet nutritional needs PEG tube insertion Requesting physician: Matheus Wilson - Chief Complaint Shortness of breath - History of Present Illness 78-year-old female admitted with shortness of breath unexplained left-sided weakness, unintentional weight loss, possible neurodegenerative disorder/ALS possible chronic aspiration. Patient has been seen in the past by a neurologist no final diagnosis has been established. Currently plans to transfer to [facility] when bed available. Recent episodes of dysphagia choking on food substances such as cereal. Dysphagia possibly related to progressive neurodegenerative disease. Family is agreeable with PEG tube placement. Chest x-ray shows no significant pneumonia. Influenza screen negative. Receiving IV antibiotics. Consult requested for PEG tube placement secondary to inability to meet nutritional needs, profound weakness, and suspected chronic aspiration. Review of Systems Constitutional: Denies fever, chills, sweats, weight gain, positive for weight loss unintentional. HEENT: Negative for migraines, blurred vision or loss, earaches, drainage, tinnitus, oral mucosal lesions, dysphagia, or odynophagia. CARDIAC: Negative for chest pain, arrhythmias, or palpitation. RESPIRATORY: Negative for shortness of breath, hemoptysis, cough, or sputum production. GI: See HPI for pertinent findings. : Negative for hematuria, urgency, frequency, polyuria, or dysuria. GYNc: Negative vaginal discharge. MUSCULOSKELETAL: Progressive muscular weakness in all extremities. NEUROLOGIC: Negative for stroke or TIA. ENDOCRINE: Negative for thyroid problems. SKIN: Negative for rash or itching. PSYCHIATRIC: Negative history for depression and anxiety Past Medical History Past Medical History: Chest Pain / Angina, Hyperlipidemia, Hypertension Additional Past Medical History / Comment(s): pt. denies any HLD. possible heart cath History of Any Multi-Drug Resistant Organisms: None Reported Past Surgical History: Hysterectomy, Orthopedic Surgery, Tubal Ligation Additional Past Surgical History / Comment(s): right hand Past Anesthesia/Blood Transfusion Reactions: No Reported Reaction Past Psychological History: No Psychological Hx Reported Smoking Status: Never smoker Past Alcohol Use History: None Reported Past Drug Use History: None Reported - Past Family History Father Family Medical History: Myocardial Infarction (ND) Additional Family Medical History / Comment(s): father passed from [place] Mother Family Medical History: CVA/TIA, Diabetes Mellitus, Hypertension Sister(s) Family Medical History: Diabetes Mellitus Medications and Allergies Home Medications Medication Instructions Recorded Confirmed Type Cholecalciferol [Vitamin D3] 2,000 unit PO DAILY 05/09/18 12/03/18 History Gabapentin [Neurontin] 300 mg PO TID 11/11/18 12/03/18 History Aspirin 81 mg PO DAILY #30 chewable 11/12/18 12/03/18 Rx Atenolol [Tenormin] 50 mg PO DAILY #30 tab 11/12/18 12/03/18 Rx Nitroglycerin Sl Tabs [Nitrostat] 0.4 mg SUBLINGUAL Q5M PRN #25 tab 11/12/1801/16 Rx Albuterol Inhaler [Ventolin Hfa 1 - 2 puff INHALATION RT-Q6H PRN 12/03/18 History Inhaler] Fluticasone Nasal [place] [Flonase 2 spr EA NOSTRIL DAILY 12/03/18 12/03/18 History Nasal [place]] Ranitidine HCl [Zantac] 150 mg PO DAILY PRN 12/03/18 12/03/18 History Allergies Allergy/AdvReac Type Severity Reaction Status Date / Time codeine AdvReac MIGRAINE Verified 12/03/18 09:46 Physical Exam Vitals: Vital Signs Temp Pulse Pulse Resp BP BP Pulse Ox 12/07/18 10:00 92 32 H 135/74 96 12/07/18 09:00 89 32 H 143/81 95 12/07/18 08:00 98.1 F 89 79 30 H 143/74 95 12/07/18 07:00 76 24 143/74 94 L 12/07/18 06:00 82 24 129/84 94 L 12/07/18 05:00 76 25 H 127/70 94 L 12/07/18 04:00 98.3 F 73 24 124/73 94 L 12/07/18 03:42 79 24 12/07/18 03:26 79 24 117/78 94 L 12/07/18 03:00 80 25 H 117/70 94 L 12/07/18 02:00 76 26 H 117/70 94 L 12/07/18 01:00 76 24 125/68 97 12/07/18 00:00 97.7 F 75 26 H 128/68 97 02/06/19 23:52 89 20 12/06/18 23:00 75 20 128/71 95 12/06/18 22:00 73 25 H 122/66 96 12/06/18 21:00 73 13 136/69 96 12/06/18 20:00 98.0 F 71 24 136/69 97 12/06/18 19:45 89 24 12/06/18 19:00 67 28 H 125/68 97 12/06/18 18:00 70 34 H 124/72 97 12/06/18 17:00 72 28 H 132/65 97 12/06/18 16:00 97.4 F L 67 29 H 129/70 98 12/06/18 15:00 70 32 H 134/76 96 12/06/18 14:00 67 31 H 132/71 98 12/06/18 13:00 67 32 H 136/77 97 12/06/18 12:00 97.9 F 71 89 32 H 133/76 98 Intake and Output 12/06/18 12/07/18 12/07/18 22:59 06:59 14:59 Intake Total 570 700 450 Output Total 445 640 105 Balance 125 60 345 Intake: IV 245 700 400 Ampicillin-Sulbactam 3 gm 100 100 In Sodium Chloride 0.9% 100 ml @ 200 mls/hr IVPB Q8HR [facility] Rx#:[id number] Sodium Chloride 0.9% 1, 20 000 ml @ 20 mls/hr IV . Q24H [facility] Rx#:[id number] Sodium Chloride 0.9% 1, 225 600 300 000 ml @ 75 mls/hr IV . [id number] [facility] Rx#:[id number] Intake, IV Titration 325 50 Amount Ampicillin-Sulbactam 3 gm 100 In Sodium Chloride 0.9% 100 ml @ 200 mls/hr IVPB Q8HR [facility] Rx#:[id number] Sodium Chloride 0.9% 1, 225 000 ml @ 75 mls/hr IV . [id number] [facility] Rx#:[id number] ceFAZolin 3 gm In Sodium 50 Chloride 0.9% 50 ml @ 100 mls/hr IVPB ONCE ONE Rx# :[id number] Output: Urine 445 640 105 Other: Voiding Method Indwelling Catheter Indwelling Catheter Indwelling Catheter Weight 70.4 kg General appearance: The patient is alert, oriented, in no acute distress. HET: Head is normocephalic and atraumatic. Pupils are equal and reactive. Oropharynx is clear without lesions. Neck: Supple without lymphadenopathy. Trachea midline. Heart: S1 S2. Regular rate and rhythm. Lungs: No crackles or wheezes are heard. Abdomen: Soft, nontender, nondistended with bowel sounds. No peritoneal signs. No palpable organomegaly or masses. Extremities/neurological: Bilateral upper and lower extremity weakness. No facial asymmetry. No peripheral edema. Results CBC & Chem 7: 12/07/18 05:40 12/07/18 05:40 Labs: Abnormal Lab Results - Last 24 Hours (Table) 12/07/18 12/07/18 Range/Units 05:40 05:40 Hct 48.1 H (34.0-46.0) % MCHC 30.8 L (31.0-37.0) g/dL Chloride 97 L (98-107) mmol/L Carbon Dioxide 40 H (22-30) mmol/L Creatinine 0.29 L (0.52-1.04) mg/dL Glucose 69 L (74-99) mg/dL Assessment and Plan (1) Dysphagia Narrative/Plan: 78-year-old female admitted with acute on chronic hypercapnic respiratory failure with suspected underlying neuromuscular degenerative disorder possible ALS. Patient tentatively scheduled to be transfer to [facility] in bed available. Intense this has discussed case with receiving neurologist at [facility]. Unable to meet her nutritional needs with suspected chronic aspiration PEG tube placement requested for nutritional support and medications. Current Visit: Yes Status: Acute Code(s): R13.10 - DYSPHAGIA, UNSPECIFIED SNOMED Code(s): 98976611 Plan: 1. Case was discussed with commercial decorator Dr. Huber. Pulmonary clearance has been given but with increased risk of respiratory decompensation secondary to underlying suspected neuro degenerative muscular disorder possible ALS. Patient 's respiratory status and suspected degenerative neurological status puts her at increased risk for intubation with anesthetic agents. Tank Carpenter reviewed anesthesia clearance before proceeding with PEG tube. Dia was notified this morning; clearance is pending. Continue supportive measures. Nothing by mouth status. Consent has been obtained from family/patient. We'll follow with you. The purification operator has discussed the risks, benefits and alternative therapies for the above-mentioned procedure and for both sedation/analgesia as well as necessary blood product administration, if indicated, as they pertain to this patient. The patient/and her family has indicated understanding and acceptance of the risks and procedures discussed. Thank you for this kind referral and the opportunity to participate in the care of your patient. This consultation was discussed with Dr. Yang. The impression and plan of care have been directed as dictated.
[2018-12-07 16:44] VITALS: BP 138/78; PULSE 100; RESP 38; TEMP 98.2
--- NOTE | 2018-12-08 15:49 | DS ---
DISCHARGE SUMMARY DATE OF ADMISSION: 12/03/2018. DATE OF TRANSFER: 12/07/2018 FINAL DIAGNOSES: 1. Bilateral aspiration pneumonia, recurrent, POA. 2. Progressive neurodegenerative disorder, possibly amyotrophic lateral sclerosis, including bulbar involvement. 3. Hyperlipidemia. 4. Essential hypertension. 5. Acute hypoxic and hypercapnic respiratory failure. 6. Progressive medical debility from the neurodegenerative disorder. HOSPITAL COURSE: This is a very pleasant lady who presented with aspiration pneumonia. Further evaluation revealed a neurodegenerative disorder. The patient had been seen by one of the [address] neurologists who was working on the diagnosis of amyotrophic lateral sclerosis. Dr. Huber, server engineer, had spoken to him. Patient had a swallowing evaluation and was found to have weakness of the pharyngeal muscles. Patient again had an episode of aspiration and desaturation. She was brought to the ICU and was given BiPAP. Family meeting was held, including with the patient. The patient wishes to remain FULL CODE and wanted further determination. She was explained that this condition, if it is the diagnosis, is rather progressive and the patient will need a PEG tube. The PEG tube was not done on the day of transfer because of pulmonary risk from anesthesia. I spoke to Dr. Osborn from [facility], who accepted the patient to the same. Beds had not been available at [facility]; we had made phone calls there. I also spoke to Dr. Huber on the day of transfer. I also spoke to Dr. Yang from . The patient also had a flexible nasopharyngeal laryngoscopy by Dr. Luevano, and patient's vocal cords were found to be functioning fine. PHYSICAL EXAMINATION: Temperature 98.7, pulse 96, respiration 37, blood pressure 139/78, pulse ox 97% on 2 L. GENERAL APPEARANCE: Lying in bed. Speech is slow. LUNGS: Decreased breath sounds. CARDIOVASCULAR: First and second sounds normal. Speech is slow. Weakness in all the 4 limbs. INVESTIGATIONS: White count 6.7. Blood gases showed a pCO2 of 87, pH of 7.34, PO2 of 80 on 30% FiO2. Medications included IV Unasyn. DISPOSITION: Medical floor with telemetry at [facility]. Accepting physician is hospitalist, Dr. Osborn. Discussion and discharge planning more than 35 minutes. CONSULTATIONS: 1. Dr. Huber from Critical Care. 2. Dr. Luevano from ENT. 3. Dr. Yang from GI. JANETTE / LENNY: [id number] /
== END 2018-12-07 16:51 | disposition short-term general hospital (02) | DRG 177 ==
LOC: EC 07:12 → 3NMEDONC 10:03 → 2SICU 12-05 17:31
PROVIDERS: ADMIT Hospitalist; ATTEND Hospitalist
PROC: 5A09357 Assistance with Respiratory Ventilation, Less than 24 Consecutive Hours, Continuous Positive Airway Pressure (ICD-10-PCS; 2018-12-05)
PROC: 0CJS8ZZ Inspection of Larynx, Via Natural or Artificial Opening Endoscopic (ICD-10-PCS; principal; 2018-12-06)
DX: J69.0 Pneumonitis due to inhalation of food and vomit (principal); J96.21 Acute and chronic respiratory failure with hypoxia; J96.22 Acute and chronic respiratory failure with hypercapnia; B37.0 Candidal stomatitis; B37.89 Other sites of candidiasis; E87.4 Mixed disorder of acid-base balance; G12.21 Amyotrophic lateral sclerosis; R13.10 Dysphagia, unspecified; E78.5 Hyperlipidemia, unspecified; I10 Essential (primary) hypertension; K11.7 Disturbances of salivary secretion; M19.90 Unspecified osteoarthritis, unspecified site; R49.0 Dysphonia; R63.4 Abnormal weight loss; R27.0 Ataxia, unspecified; Z79.82 Long term (current) use of aspirin; Z79.899 Other long term (current) drug therapy; Z90.710 Acquired absence of both cervix and uterus; Z88.5 Allergy status to narcotic agent; Z98.51 Tubal ligation status; Z82.49 Family history of ischemic heart disease and other diseases of the circulatory system; Z83.3 Family history of diabetes mellitus; Z82.3 Family history of stroke
CPT/HCPCS: 36415; 36600; 70496; 70498; 71045; 71046; 71260; 80048; 80053; 81003; 82550; 82553; 82607; 82803; 82805; 83519; 83735; 83880; 84100; 84439; 84443; 84484; 85025; 85610; 85730; 86780; 87502; 93005; 94660; 94760; 99285